=== PATIENT | female | born 1945 | race African-American/Black ===

== ENCOUNTER → 2017-07-24 | Outpatient (CLI) | payer OTHER ==
[~2017-07-24] VITALS: Ht 160 cm; Wt 63.5 kg
[~2017-07-24] MED LIST: AMBIEN 5 MG TABL5 M1 PO; ASPIR 8181 MG PO; CALCITRIOL0.25 MCG PO; CALCIUM ACETAT667 MG PO; CLONAZEPAM 1 MG1 M1 PO; COLACE 100 MG100 MG PO; HEPARIN IV; HYDROCODONE-CHLO5 ML PO; KEPPRA 500 MG500 M1 PO; LEVOXYL25 MCG PO; LIPITOR10 MG PO; MINOCIN100 MG PO; NEPHROCAPS SOFT1 CAP PO; NEURONTIN 300300 M1 PO; OXYCODONE HCL10 MG PO; OXYCODONE HCL5 MG PO; PENTOXIFYLLINE400 MG PO; PHOSLO667 M1 PO; PROSTAT; SENSIPAR 30 MG30 MG PO; SENSIPAR60 MG PO; TRAVATAN Z2.5 ML OPHTHALMIC; TUSSIONEX PENNKI1 ML PO
--- NOTE | ~2017-07-24 | HPC ---
[facility] [address] [place] [address] PAIN MANAGEMENT CONSULTATION Name: IRENE HYDE Room #: REG RADHA Maradiaga#: [id number] Admission: 07/24/17 Attend Phys: Larry Dickson DO Discharge: Date of : 49 Report #: [id number] THIS REPORT FOR: //name// <ELECTRONICALLY SIGNED> By: Larry Dickson DO 08/10/17 0714 1114 1125 Larry Dickson DO /nt
--- NOTE | ~2017-07-24 | HPC ---
[facility] [address] [address] PAIN MANAGEMENT CONSULTATION Name: IRENE HYDE Room #: REG [facility]..#: [id number] Admission: 07/24/17 Attend Phys: Larry Dickson DO Discharge: Date of : 47 Report #: [id number] THIS REPORT FOR: //name// CC: KEYLA Dickson ____ ____ DATE OF SERVICE: 07/24/2017 The patient is a delightful 72-year-old female seen in consultation at the request of [facility] for assistance with management of chronic pain concerns. The patient has peripheral neuropathy, hands greater than feet. She has used gabapentin for some time with nominal efficacy, did well with oxycodone 10 mg 1-2 a day, limit 60 tablets in 30 days. She notes she has an electric quality of pain in her hands, burning in her feet, she notes the symptoms are continuous, shooting, aching, throbbing, sharp, and stabbing, rates pain anywhere from 8-10 on a VAS. REVIEW OF SYSTEMS: A complete review of systems was attached to chart and was gone over with the patient. She is . She has poorly treated hypertension. She ultimately ended up with chronic kidney disease and has been on dialysis since 2004. She has history of hepatitis C from a blood transfusion when she was much younger. History of DJD affecting back and multiple joints. History of high procalcitonin. She has a shunt in the right upper extremity. She is hypothyroid for which she uses levothyroxine. Dyslipidemia for which she takes atorvastatin, zolpidem at bedtime for insomnia, Sensipar for hyperparathyroidism, clonazepam 1 mg at bedtime for insomnia and anxiety. As noted in the chief complaint, oxycodone 10 mg 1 or 2 a day and gabapentin 300 mg once a day. All other review of systems are noncontributory (negative). PHYSICAL EXAMINATION: Reveals a very pleasant 5 feet 3 inches, 140 pounds female, BMI is 24.8 kg/m2. Blood pressure is 141/74, pulse is 76, respirations are 16, room air saturation 100%. Subjective pain score is 9 on a VAS. She uses a walker to ambulate, status post fracture of the right ankle in May 2015. She just had hardware removed in February 2017. She spent mostly 2015 in the hospital with poor wound healing and that open comminuted fracture. Cranial nerves 2-12 are grossly intact. Pupils are equal and react to light and accommodation. Extraocular muscles are intact. She has poor dentition. Shunt in the right arm. Multiple dermatologic lesions on her arms and legs secondary to hypercalcemia. Right ankle, status post surgery with slight diminished range [facility] [address] [place] [address] PAIN MANAGEMENT CONSULTATION Name: IRENE HYDE Room #: REG CLFeli Maradiaga#: [id number] Admission: 07/24/17 Attend Phys: Larry Dickson DO Discharge: Date of : 49 Report #: [id number] of motion. Heart is regular and rhythmical without murmur. Lungs are clear to auscultation. ASSESSMENT: Neuropathic pain, bilateral hands and feet in a patient with chronic kidney disease on dialysis Thursday, and Thursday (hemodialysis). Multiple comorbidities. RECOMMENDATIONS: I think it is reasonable to continue patient on oxycodone 10 mg 1-2 a day, limit 60 tablets for 30 days. We talked about opiate concerns including habituation, tolerance, sedation, constipation. Gabapentin is certainly reasonable for neuropathic pain. As this drug is near 100% renally excreted, we will simply have the patient take two tablets, 600 mg Thursday, , and Thursday after dialysis. We will have the patient follow up in 30 days for reevaluation. Thank you for allowing me to participate in the patient's care, I will keep you abreast of her progress. ADDENDUM REVIEW OF SYSTEMS: She has a history of chronic kidney disease. She has a shunt in her right arm. <ELECTRONICALLY SIGNED> By: Larry Dickson DO 08/10/17 0714 1230 1540 Larry Dickson DO /nt
[2017-07-24 10:14] VITALS: BP 141/74
== END ==
LOC: PAIN 06-12 06:58
DX: M79.643 Pain in unspecified hand (principal); M79.673 Pain in unspecified foot; N18.9 Chronic kidney disease, unspecified; Z87.891 Personal history of nicotine dependence

== ENCOUNTER → 2017-08-24 | Outpatient (CLI) | payer OTHER ==
[~2017-08-24] VITALS: Ht 160 cm; Wt 70.3 kg
--- NOTE | ~2017-08-24 | HPC ---
[facility] [place] [place] [address] [place] [address] PAIN MANAGEMENT CONSULTATION Name: IRENE HYDE Room #: REG [facility] MMarissa.#: [id number] Admission: 08/24/17 Attend Phys: Lrary Dickson DO Discharge: Date of : 47 Report #: [id number] THIS REPORT FOR: //name// CC: OSMANY Dickson PAIN CLINIC NOTE The patient is a very pleasant 72-year-old female, initially seen on 07/24/2017 for management of neuropathic pain in bilateral feet and hands, requiring complex medication management. Comorbidity includes chronic kidney disease, requiring dialysis Thursday, and Saturdays. I saw her on the . We elected to continue oxycodone 10 mg 1 or 2 a day as needed for pain and changed gabapentin from a daily tablet to simply to two 300 mg tablets (600 mg for these once after dialysis) 3 times a week. The patient returns to pain clinic today noting symptoms seemed to be improving, still, however, has a burning, sharp electric pain in her hands and feet, though feels that she is doing a little bit better. Physical exam is otherwise unchanged, a pleasant 72-year-old female. Vital signs stable as noted in the EMR. She rates her pain at about a 6 on a VAS. Rises from chair using a walker, gait is antalgic, but tandem. She is alert and oriented. Fingers are cool, but she does have good pulses. We reviewed the fact that opiate medications are being used to provide analgesia adequate to support activities of daily living, not attempting to achieve a specific pain score on the 0-10 Visual Analog Scale. The current opiate medications are providing sufficient analgesia to allow the patient to participate in activities of daily living. The patient is not exhibiting any aberrant behavior suggestive of drug diversion. The patient is not having any adverse reactions to medications. The patient is not suffering from daytime somnolence or mental acuity changes. The patient is managing opiate-induced constipation with appropriate czcz-yim-knhakuw agents and dietary considerations. The patient was counseled on concern for caution with operating a motor vehicle while using opiate medications. A physical exam was performed and the patient's functional status was evaluated. All patients with back pain were advised against the bed rest greater than 4 days and were advised to return to normal activities. Pain score assessment was noted and the treatment plan was reviewed with the patient. All current medications, both prescribed and OTC were reviewed and reconciled on the electronic medical record. Tobacco screening was accomplished and smoking cessation was advised when indicated. BMI was noted and diet/exercise modification was recommended for all patients following outside normal parameters. I reviewed with the patient today their responsibilities to safeguard prescription medications, reviewed their responsibility to utilize medications [address] [address] PAIN MANAGEMENT CONSULTATION Name: IRENE HYDE Room #: REG RADHA Maradiaga#: [id number] Admission: 08/24/17 Attend Phys: Larry Dickson DO Discharge: Date of : 47 Report #: [id number] only as prescribed by the physician. They are to seek and receive pain medications only from 1 physician group ([facility]). They are to use 1 pharmacy and keep the clinic informed if they change pharmacies. Their responsibilities include making followup visits in a timely fashion and to avoid abrupt discontinuation of medication usage. Their responsibilities further include bringing their medications (bottles from the pharmacy with residual pills) to the visit for possible confirmation of pill counts and the patient understands it is their responsibility to submit to random drug screens to ensure both that the medications prescribed are present, and that no other controlled substances are present. All prescriptions provided today were generated electronically. ASSESSMENT: 1. Neuropathic pain in bilateral feet and hands, chronic kidney disease requiring dialysis Tuesdays, and Saturdays. 2. Complex medication management. RECOMMENDATIONS: 1. Continue oxycodone 10 mg 1-2 tablets a day (one tablet up to b.i.d. as needed for pain), dispense 60 tablets. 2. Increase gabapentin to 3 tablets after dialysis (900 mg) 3 times a week. Follow up in 4 weeks for evaluation. If doing well, we will write for multi-month prescription at that time. <ELECTRONICALLY SIGNED> By: Larry Dickson DO 08/26/17 0753 1250 2103 Larry Dickson DO /nt
[2017-08-24 12:36] VITALS: BP 126/83
== END ==
LOC: PAIN 08-21 07:48
DX: M79.2 Neuralgia and neuritis, unspecified (principal); N18.9 Chronic kidney disease, unspecified; Z99.2 Dependence on renal dialysis; Z79.899 Other long term (current) drug therapy

== ENCOUNTER → 2017-11-19 | Outpatient (CLI) | payer OTHER ==
[~2017-11-19] VITALS: Ht 160 cm; Wt 67.3 kg
--- NOTE | ~2017-11-19 | HPC ---
[facility] [place] [address] PAIN MANAGEMENT CONSULTATION Name: IRENE HYDE Room #: REG [facility] Chiquita.#: [id number] Admission: 11/19/17 Attend Phys: Larry Dickson, DO Discharge: Date of : 47 Report #: [id number] THIS REPORT FOR: //name// CC: Slava Dickson The patient is a 72-year-old female, typically treated for neuropathic pain affecting bilateral hands and feet, complex medication management, chronic comorbidities including renal failure requiring dialysis Tuesdays, and Saturdays. She was last seen in pain clinic on 08/24/2017. She returns to pain clinic today. She is quite frustrated. Apparently, she had dropped her oxycodone tablets on the floor. The patient reports that the nursing staff swept up and threw them away. She has been out of oxycodone for 10 days. She rates her pain a 10 on a VAS. She complains of constant, shooting, sharp, aching, throbbing, pins and needles pain in her hands and feet. She is frustrated and anxious today. Maybe, she may have a little bit of opiate withdrawal, anxiety. Prior, the patient notes her oxycodone 10 mg b.i.d. (30 mEq of morphine a day) plus gabapentin after dialysis has been helpful to mitigate her pain. She has always rated her pain high, 8-9 typically, but states the pain is quite problematic at this time. She notes some axial back pain with dialysis. PHYSICAL EXAMINATION: Relatively unchanged, 72-year-old female, BMI is 26.3 kilograms per meter squared. She is alert and oriented, little anxious, quite hypertensive today. Blood pressure 175/125, pulse is 95, respirations are 18, room air oxygen saturation is 100%. Reviewing the chart, it appears that typically her blood pressure has been well within normal limits. Subjective peripheral neuropathy in her hands and feet. No cutaneous changes are noted. We reviewed the fact that opiate medications are being used to provide analgesia adequate to support activities of daily living, not attempting to achieve a specific pain score on the 0-10 Visual Analog Scale. The current opiate medications are providing sufficient analgesia to allow the patient to participate in activities of daily living. The patient is not exhibiting any aberrant behavior suggestive of drug diversion. The patient is not having any adverse reactions to medications. The patient is not suffering from daytime somnolence or mental acuity changes. The patient is managing opiate-induced constipation with appropriate imtf-nio-dbwpfnn agents and dietary considerations. The patient was counseled on concern for caution with operating a motor vehicle while using opiate medications. A physical exam was performed and the patient's functional status was evaluated. All patients with back pain were advised against the bed rest greater than 4 days and were advised to return to normal activities. Pain score assessment was noted and the treatment plan was reviewed with the patient. All current medications, both prescribed and OTC were reviewed and reconciled on the [address] [address] PAIN MANAGEMENT CONSULTATION Name: MARY ELLENIRENE ZENON Room #: REG RADHA Maradiaga#: [id number] Admission: 11/19/17 Attend Phys: Larry Dickson DO Discharge: Date of : 49 Report #: [id number] electronic medical record. Tobacco screening was accomplished and smoking cessation was advised when indicated. BMI was noted and diet/exercise modification was recommended for all patients following outside normal parameters. I reviewed with the patient today their responsibilities to safeguard prescription medications, reviewed their responsibility to utilize medications only as prescribed by the physician. They are to seek and receive pain medications only from 1 physician group ( [facility]). They are to use 1 pharmacy and keep the clinic informed if they change pharmacies. Their responsibilities include making followup visits in a timely fashion and to avoid abrupt discontinuation of medication usage. Their responsibilities further include bringing their medications (bottles from the pharmacy with residual pills) to the visit for possible confirmation of pill counts and the patient understands it is their responsibility to submit to random drug screens to ensure both that the medications prescribed are present, and that no other controlled substances are present. All prescriptions provided today were generated electronically. ASSESSMENT: Neuropathic pain, bilateral hands and feet; chronic kidney disease, requiring dialysis 3 days a week; complex medication management for neuropathic and axial back pain. RECOMMENDATIONS: I had a long discussion with the patient today about therapeutic options. We have elected to resume oxycodone IR 10 mg b.i.d., I have taken the liberty of writing for 2 months of current medication. Resume gabapentin 300 mg 3 tablets after dialysis on Tuesdays, and Saturdays. Otherwise, no medication changes. Medication list was reconciled today. The patient has not fallen in the last 3 months. She does use a walker. No problems with daytime somnolence, mental acuity changes or constipation. <ELECTRONICALLY SIGNED> By: Larry Dickson DO 11/19/17 1445 1133 1429 Larry Dickson DO /nt
[2017-11-19 11:07] VITALS: BP 175/126
== END ==
LOC: PAIN 07:04
DX: M79.2 Neuralgia and neuritis, unspecified (principal); N18.9 Chronic kidney disease, unspecified; M79.642 Pain in left hand; M79.641 Pain in right hand; M79.672 Pain in left foot; M79.671 Pain in right foot; Z99.2 Dependence on renal dialysis; Z79.899 Other long term (current) drug therapy

== ENCOUNTER → 2018-03-24 | Outpatient (CLI) | payer OTHER ==
[~2018-03-24] VITALS: Ht 160 cm; Wt 67.4 kg
--- NOTE | ~2018-03-24 | HPC ---
[facility] [place] [address] PAIN MANAGEMENT CONSULTATION Name: MARY ELLENIRENEGINA YARBROUGH Room #: REG [facility]..#: [id number] Admission: 03/24/18 Attend Phys: Zana Hyde MD Discharge: Date of : 47 Report #: [id number] THIS REPORT FOR: //name// CC: Slava Hyde DATE OF SERVICE: 03/24/2018 CHIEF COMPLAINT: Bilateral hand pain and leg pain. HISTORY: The patient is a 72-year-old black female who has been followed in the pain clinic. She has chronic pain involving her hands. Also, has pain involving her feet. This is neuropathic in nature. She has used Icy Hot on her hands and finds that this is somewhat helpful. Finds that the use of gabapentin is beneficial. She takes this medication after dialysis on Tuesdays, and Saturdays. She also has pain improved with the use of OxyIR 10 mg b.i.d. She feels that this medication is helpful as well. She states that she is able to do activities of daily living such as keeping her house clean and to remain independent. She feels that these medications are beneficial. Rates her pain as a 10/10 today. She did run out of medications a couple of days ago. Overall, she feels that the medication is helpful. Denies that she has any problems with mentation. Denies she is having any problems with the gabapentin or the OxyIR. She has returned today for renewal of her medications. She states that she continues to think clearly when she is on these medications. She is having no problems with constipation or other problems. ALLERGIES: 1. NONSTEROIDAL ANTI-INFLAMMATORY medications since the patient is on dialysis. 2. PSEUDOEPHEDRINE. CURRENT MEDICATIONS: 1. OxyIR 10 mg b.i.d., gabapentin 900 mg 3 tablets after dialysis Tuesdays, and Saturdays. 2. Heparin during dialysis. The heparin was used during dialysis, levothyroxine 0.025 mg, calcium 667 mg, Lipitor 10 mg, Ambien 5 mg at bedtime p.r.n., insomnia, Sensipar 30 mg, B complex, folic acid, Nephrocaps 1 mg, Travatan Z 2.5 mL, 2 drops ophthalmically daily, clonazepam 1 mg, aspirin 81 mg. PAIN CLINIC ASSESSMENT/PQRS: 1. History of osteoarthritis. The patient states that she has some arthritic changes in her hands. She is not being treated for rheumatoid arthritis or osteoarthritis. 2. Height 5 feet 3 inches, weight 148 pounds, BMI 26.3. 3. Vital signs: Blood pressure 186/92, pulse 83, respiratory rate 16, room air saturation is 100%. 4. Pain intensity 10/10. [facility] [address] [place] [address] PAIN MANAGEMENT CONSULTATION Name: MARY ELLENIRENE ZENON Room #: REG CLI [facility].#: [id number] Admission: 03/24/18 Attend Phys: Zana Hyde MD Discharge: Date of : 49 Report #: [id number] 5. Fall risk. The patient has not fallen in the last 3 months. 6. Blood thinner. The patient is not on a blood thinning medication. 7. Hypertension. The patient is being treated for hypertension. 8. Opioid medications. The patient gets her medications from one source, the pain clinic. 9. Risk assessment tool, low for opioid use. 10. Functional assessment . 11. Recreational drug use. The patient denies use of recreational drugs. 12. Alcohol: The patient denies use of alcoholic beverages. 13. Tobacco: The patient denies smoking. PHYSICAL EXAMINATION: GENERAL: The patient is a well-developed, well-nourished black female. She appears her stated age. She is alert and oriented x 3. Her affect is appropriate. Speech is fluent, sensorium is clear. HEENT: Normocephalic, atraumatic. Extraocular eye muscles intact. Sclerae nonicteric. Mucous membranes are moist. NECK: Without adenopathy or JVD. HEART: Regular rate. ABDOMEN: Nontender. Bowel sounds present. LUNGS: Clear to auscultation. EXTREMITIES: Muscle straight judged to be 4/5 for the major muscle groups in the upper extremities. Lower extremity muscle strength 5-/5 for the major muscle groups in the lower extremity. The patient has pain and discomfort involving her hands. Has pain and discomfort in her feet. IMPRESSION: 1. Neuropathic pain. 2. Bilateral hand and foot pain. 3. Renal disease requiring dialysis. 4. Complex medical regimen with axial back pain as well. 5. Hepatitis C. 6. Renal failure. 7. Hypertension. RECOMMENDATIONS: We discussed treatment options with the patient. The patient states that she is not having any problems with her gabapentin medication, when she takes this medication, she notes an improvement in her pain. This enables her to stay active. States that she mops her floor, cleans her house, keeps her house in a very good an organized fashion. Has a helper who comes by to do the drudgery or cleaning that she dislikes which is laundry as well as ironing. Overall, she is able to abstain and maintain her independence. She would like to continue with her medications. RECOMMENDATION: A script for her OxyIR 10 mg 1 p.o. b.i.d. has been written. The patient will also continue with gabapentin 900 mg 3 tablets 3 times weekly [facility] [address] [place] [address] PAIN MANAGEMENT CONSULTATION Name: IRENE HYDE Room #: REG CLI .R.#: [id number] Admission: 03/24/18 Attend Phys: Zana Hyde MD Discharge: Date of : 49 Report #: [id number] after dialysis. We would like to thank you for letting us participate in her care. We hope she continues to improve. By: [id number] Zana Hyde MD /nt
[2018-03-24 13:05] VITALS: BP 186/92
== END ==
LOC: PAIN 07:18
DX: M79.2 Neuralgia and neuritis, unspecified (principal); M79.642 Pain in left hand; M79.641 Pain in right hand; M79.604 Pain in right leg; M79.605 Pain in left leg; I10 Essential (primary) hypertension; N28.9 Disorder of kidney and ureter, unspecified; K73.8 Other chronic hepatitis, not elsewhere classified

== ENCOUNTER → 2018-05-24 | Outpatient (CLI) | payer OTHER ==
[~2018-05-24] VITALS: Ht 160 cm; Wt 69.1 kg
[2018-05-24 12:38] VITALS: BP 151/85
--- NOTE | 2018-05-24 12:42 | NUR ---
Pain Clinic Assessment: 1. History of Osteoarthritis: History of Rheumatoid Arthritis: 2. Height: 5 ft. 3 in. 160.0 cm. Weight: 152.4 lb. oz. 69.128 kg. Patient's BMI: 27.0 3. Vital Signs: BP: 151/85 Pulse: 85 Resp: 16 Temp: 02 Sat: 100 ECG Mon: 4. Pain Intensity: 10 5. Fall Risk: Dizziness: N Needs help standing or walking: N Fallen in the last 3 months: N Fall risk comments: 6. Patient on Blood Thinner: None 7. History of Hypertension: Y 8. Opioid Therapy greater than 6 weeks: Y Opiate Contract Signed: 9. Risk Assessment Tool Provided: LOW 10. Functional Assessment Tool: 11. Recreational Drug Use: Never Drug Type: Tobacco Use: Former Smoker Tobacco Type: Amount or Packs/day: How Many Years: Alcohol Use: No Frequency: Quant:
--- NOTE | 2018-05-25 08:11 | HPC ---
[facility] [address] [place] [address] PAIN MANAGEMENT CONSULTATION Name: IRENE LOGAN Room #: REG [facility] MMarissa.#: [id number] Admission: 05/24/18 Attend Phys: Heaven Guerrero Discharge: Date of : 49 Report #: [id number] THIS REPORT FOR: //name// CC: Heaven Guerrero [facility] DATE OF SERVICE: 05/24/2018 CHIEF COMPLAINT: Bilateral hand pain and leg pain. HISTORY OF PRESENT ILLNESS: This is a 72-year-old black female followed in the pain clinic for some time now for her chronic pain involving her hands. She also has pain involving bilateral feet. This is neuropathic in nature. She does take dialysis on Thursday, and Saturdays and takes gabapentin after her dialysis days. She finds this is very beneficial. She would like a refill of her OxyIR 10 mg and her gabapentin today. 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 She tells me that it is shooting, aching, throbbing pain, worse of course in her feet and she does have hand pain. Normally, her pain score is significantly less. She also tells me that she has a blood clot in her right arm, states since has been having problems with her dialysis because of this. She is hoping to get that squared away this week, going to see her primary doctor tomorrow because she is leaving to go to [place] on to see her brother for a while. The patient would like a refill of her medications today before she goes out of town. She does not have any constipation issues or daytime somnolence that she is aware of. ALLERGIES: NONSTEROIDAL ANTI-INFLAMMATORIES, PSEUDOEPHEDRINE, IBUPROFEN, AND LYRICA. CURRENT MEDICATIONS: OxyIR 10 mg twice a day; gabapentin 300 mg 3 tablets after dialysis Thursday, and Thursday; thyroid medicine 0.25 daily; calcium acetate daily; atorvastatin 10 mg at bedtime; Ambien 5 mg at bedtime p.r.n.; Sensipar 60 mg daily; B complex; folic acid; Nephrocaps daily; Travatan 2.5 ophthalmic drops daily; clonazepam 1 mg at bedtime; and 81 mg aspirin daily. PQRS: 1. She has a history of osteoarthritis. She states she has arthritic changes in her hands, not being treated for rheumatoid arthritis. 2. Height is 5 feet 3 inches, weight today is 152, BMI is 27. 3. Vital signs: 151/85, pulse is 85, respirations 16, oxygen sat 100%. 4. Pain score is 10. 5. Denies dizziness. Does not need help walking or standing. Has not fallen in the last 3 months. 6. The patient does not take blood thinners. [address] [address] PAIN MANAGEMENT CONSULTATION Name: MARY ELLENIRENE YARBROUGH Room #: REG RADHA Maradiaga#: [id number] Admission: 05/24/18 Attend Phys: Heaven Guerrero Discharge: Date of : 47 Report #: [id number] 7. Has a history of hypertension. 8. Opioid therapy is greater than 6 weeks. Therefore, an opioid signed contract is on the chart. Risk assessment tool is low. Her functional assessment is 21/70. 9. The patient denies recreational drug use. She is a former smoker, does not drink alcohol. We did check prescription monitoring system. The patient does fill appropriately for her medications by Dr. Logan. The patient tells me that she does safeguard her medications. We will check a drug screen on the next visit. There is not one on the chart until past year. PHYSICAL EXAMINATION: GENERAL: This is a well-developed, well-nourished black female. She appears her stated age. She is alert and orientated. Her affect is appropriate. Her speech is fluent. HEENT: Normocephalic, atraumatic. Extraocular eye muscles are intact. Sclerae nonicteric. Mucous membranes are moist. NECK: Without adenopathy or JVD. EXTREMITIES: Muscle strength judged to be 4/5 in all major muscle groups in the upper extremities. The lower extremity strength judged to be 5/5 in major muscle groups in her lower extremities. She has pain and discomfort in her bilateral hands and some in her right lower arm. IMPRESSION: 1. Neuropathic pain. 2. Bilateral hand and foot pain. 3. Renal disease requiring dialysis. 4. Complex medical regimen with axial back pain. 5. Hepatitis C. 6. Renal failure. 7. Hypertension. We reviewed the fact that opiate medications are being used to provide analgesia adequate to support activities of daily living, not attempting to achieve a specific pain score on the 0-10 Visual Analog Scale. The current opiate medications are providing sufficient analgesia to allow the patient to participate in activities of daily living. The patient is not exhibiting any aberrant behavior suggestive of drug diversion. The patient is not having any adverse reactions to medications. The patient is not suffering from daytime somnolence or mental acuity changes. The patient is managing opiate-induced constipation with appropriate xlwu-hzo-onatcsw agents and dietary considerations. The patient was counseled on concern for caution with operating a motor vehicle while using opiate medications. A physical exam was performed and the patient's functional status was evaluated. All patients with back pain were advised against the bed rest greater than 4 days and were advised to return to normal activities. Pain score assessment was [facility] [address] [place] [address] PAIN MANAGEMENT CONSULTATION Name: IRENE LOGAN Room #: REG [facility] M.R.#: [id number] Admission: 05/24/18 Attend Phys: Heaven Guerrero Discharge: Date of : 49 Report #: [id number] noted and the treatment plan was reviewed with the patient. All current medications, both prescribed and OTC were reviewed and reconciled on the electronic medical record. Tobacco screening was accomplished and smoking cessation was advised when indicated. BMI was noted and diet/exercise modification was recommended for all patients following outside normal parameters. I reviewed with the patient today their responsibilities to safeguard prescription medications, reviewed their responsibility to utilize medications only as prescribed by the physician. They are to seek and receive pain medications only from 1 physician group ( [facility]). They are to use 1 pharmacy and keep the clinic informed if they change pharmacies. Their responsibilities include making followup visits in a timely fashion and to avoid abrupt discontinuation of medication usage. Their responsibilities further include bringing their medications (bottles from the pharmacy with residual pills) to the visit for possible confirmation of pill counts and the patient understands it is their responsibility to submit to random drug screens to ensure both that the medications prescribed are present, and that no other controlled substances are present. All prescriptions provided today were generated electronically. PLAN: 1. We discussed treatment options with the patient today. The patient tells me that she does need her pain medicine refilled today. She has been out 3 days and that her pain has been significantly increased. 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 Scripts given today for her OxyIR 10 mg twice a day, #60 to release today and 4 weeks. 2. The patient tells me that she does not need her gabapentin refilled today. Her caregiver had called her primary doctor for refill of that. She instructed her not to do this again that she gets that medicine from Dr. Logan, so she has not needing a gabapentin script today. 3. The patient is going to see her brother in [place]. I instructed her to safeguard her medicines and keep them with her at all times when she is traveling. The patient verbalized understanding. 4. We will collect a urine or oral swab next visit for a drug screen on this patient. Today, care was given under the direction of Dr. Logan. <ELECTRONICALLY SIGNED> By: Heaven Guerrero 05/25/18 0811 1335 56 Heaven Guerrero /anupam
== END ==
LOC: PAIN 05-19 08:20
DX: M79.605 Pain in left leg (principal); M79.604 Pain in right leg; M79.2 Neuralgia and neuritis, unspecified; M79.641 Pain in right hand; M79.642 Pain in left hand; N28.9 Disorder of kidney and ureter, unspecified; B19.20 Unspecified viral hepatitis C without hepatic coma; I10 Essential (primary) hypertension; M54.5 Low back pain

== ENCOUNTER → 2018-07-28 | Outpatient (CLI) | payer OTHER ==
[~2018-07-28] VITALS: Ht 160 cm; Wt 64.0 kg
--- NOTE | ~2018-07-28 | HPC ---
[facility] [address] [place] [address] PAIN MANAGEMENT CONSULTATION Name: IRENE LOGAN Room #: REG [facility]..#: [id number] Admission: 07/28/18 ������������������ Attend Phys: Zana Logan MD Discharge: ������������������ Date of : 47 Report #: [id number] THIS REPORT FOR: //name// CC: OSMANY Luna DATE OF SERVICE: 07/28/2018 CHIEF COMPLAINT: Pain in the neck, arms, and hands after surgery. FOLLOWUP HISTORY: The patient is a 73-year-old female who has been seen in the pain clinic in the past because of chronic pain. Has had pain in her hands as well as in her legs. She has been found to have neuropathic pain. States that she was mopping her floors on her hands and knees. She developed some problems in her upper extremity. States that she was very weak. After getting assistance, she was taken to the hospital. It was found that she had had some narrowing up in her neck. She underwent surgery in the neck area. States that she has had some improvement in her functioning. She is in a nursing facility at this juncture. States that she did develop some infection in her neck and is being treated for that. Overall, she continues to require dialysis. She has some concerns regarding her medications at the new facility. States that the color of the medications were different. This caused her some consternation and she declined taking some of her medications. She has not been taking the gabapentin medication. She felt that medication had been beneficial in the past. ALLERGIES: NONSTEROIDAL ANTI-INFLAMMATORY, THE PATIENT IS ON DIALYSIS AND PSEUDOEPHEDRINE. CURRENT MEDICATIONS: OxyIR 10 mg b.i.d.; gabapentin 300 mg, takes 900 mg as directed 3 tablets after dialysis Thursday, and Thursday; heparin 2000 units during dialysis; Levothyroxine 0.025 mg; Ambien 5 mg for insomnia; Sensipar 30 mg daily, Nephrocaps softgel, Travatan Z 2.5 mL ophthalmic, clonazepam 1 mg, aspirin 81 mg chewable. PAIN CLINIC ASSESSMENT/PQRS: 1. History of osteoarthritis. The patient has some arthritic problems in her neck. Status post posterior surgical treatment. The patient is not being treated for rheumatoid arthritis. 2. Height 5 feet 3 inches, weight 141 pounds, BMI 25. 3. Vital signs: Blood pressure 101/61, pulse 94, respiratory rate 16, room air saturation 100%. 4. Pain intensity 10/10. 5. Fall history: The patient has not fallen in the last 3 months. 6. Blood thinner. The patient is not on a blood thinning medication. [facility] [address] [place] [address] PAIN MANAGEMENT CONSULTATION Name: IRENE LOGAN Room #: REG CL Chiquita.#: [id number] Admission: 07/28/18 ������������������ Attend Phys: Zana Logan MD Discharge: ������������������ Date of : 49 Report #: [id number] 7. Hypertension. The patient is being treated for hypertension. 8. Opiates greater than 6 weeks. The patient receives her medication from [facility]. 9. Risk assessment tool: Low for opioid use. 10. Functional assessment tool . 11. Recreational drug use. The patient denies use of recreational drugs. 12. Tobacco: The patient is a former smoker. 13. Alcohol: The patient denies use of alcoholic beverages at this juncture. PHYSICAL EXAMINATION: GENERAL: The patient is a well-developed well-nourished, black female, appears her stated age. She is in a wheelchair. Complains of some pain and discomfort in her hands as well as in her lower extremities. Speech is fluent. The patient has some decreased range of motion in her neck secondary to the surgery. There is a well healing scar from the occipital area to approximately T1 interspace area. HEART: Regular rate. ABDOMEN: Nontender. Bowel sounds present. LUNGS: Clear to auscultation. EXTREMITIES: Upper extremity, judged to be 4/5 for the major muscle groups. Lower extremity, 4/5 for lower extremity. The patient has some neuropathic pain involving her hands and feet. IMPRESSION: 1. Neuropathic pain. 2. Bilateral hand and foot pain. 3. Renal disease requiring dialysis 3 times weekly. 4. Complex medical regimen with axial back pain. 5. Hepatitis C history. 6. Renal failure. 7. Hypertension. RECOMMENDATIONS: We discussed treatment options with the patient. At this juncture, we will continue with her medications of gabapentin. The patient will take 900 mg of this medication after dialysis. She will call us if she has any concerns. An instruction for use of gabapentin have been provided. We would like to thank you for letting us participate in her care. ��������������������������������������������� ���������������������������������������� By: ��������������������������������������������� 1112 40 Zana Logan MD /[facility]
[2018-07-28 10:10] VITALS: BP 101/61
--- NOTE | 2018-07-28 10:32 | NUR ---
Pain Clinic Assessment: 1. History of Osteoarthritis: History of Rheumatoid Arthritis: 2. Height: 5 ft. 3 in. 160.0 cm. Weight: 141.0 lb. oz. 63.957 kg. Patient's BMI: 25.0 3. Vital Signs: BP: 101/61 Pulse: 94 Resp: 16 Temp: 02 Sat: 100 ECG Mon: 4. Pain Intensity: 10 5. Fall Risk: Dizziness: Y Needs help standing or walking: Y Fallen in the last 3 months: Y Fall risk comments: 6. Patient on Blood Thinner: None 7. History of Hypertension: Y 8. Opioid Therapy greater than 6 weeks: Y Opiate Contract Signed: 9. Risk Assessment Tool Provided: LOW 10. Functional Assessment Tool: 11. Recreational Drug Use: Never Drug Type: Tobacco Use: Former Smoker Tobacco Type: Amount or Packs/day: How Many Years: Alcohol Use: No Frequency: Quant:
== END ==
LOC: PAIN 07:06
DX: M79.641 Pain in right hand (principal); M79.642 Pain in left hand; M79.671 Pain in right foot; M79.672 Pain in left foot; M54.5 Low back pain; G62.9 Polyneuropathy, unspecified; N17.9 Acute kidney failure, unspecified; I12.0 Hypertensive chronic kidney disease with stage 5 chronic kidney disease or end stage renal disease; N18.6 End stage renal disease; Z99.2 Dependence on renal dialysis; Z79.899 Other long term (current) drug therapy; Z86.19 Personal history of other infectious and parasitic diseases

== ENCOUNTER → 2018-09-10 | Outpatient (CLI) | payer OTHER ==
[~2018-09-10] VITALS: Ht 160 cm; Wt 64.4 kg
[~2018-09-10] MED LIST changes: +PLAVIX 75 MG TA75 M1 PO; +PROTONIX40 M1 PO
[2018-09-10 11:35] VITALS: BP 136/98
--- NOTE | 2018-09-10 11:41 | NUR ---
Pain Clinic Assessment: 1. History of Osteoarthritis: History of Rheumatoid Arthritis: 2. Height: 5 ft. 3 in. 160.0 cm. Weight: 142.0 lb. oz. 64.411 kg. Patient's BMI: 25.2 3. Vital Signs: BP: 136/98 Pulse: 91 Resp: 18 Temp: 02 Sat: 100 ECG Mon: 4. Pain Intensity: 10 5. Fall Risk: Dizziness: N Needs help standing or walking: Y Fallen in the last 3 months: N Fall risk comments: 6. Patient on Blood Thinner: None 7. History of Hypertension: Y 8. Opioid Therapy greater than 6 weeks: Y Opiate Contract Signed: 9. Risk Assessment Tool Provided: LOW 10. Functional Assessment Tool: 11. Recreational Drug Use: Never Drug Type: Tobacco Use: Former Smoker Tobacco Type: Amount or Packs/day: How Many Years: Alcohol Use: No Frequency: Quant:
--- NOTE | 2018-09-13 08:27 | HPC ---
[facility] [place] [address] PAIN MANAGEMENT CONSULTATION Name: IRENE LOGAN Room #: REG [facility]..#: [id number] Admission: 09/10/18 ������������������ Attend Phys: Heaven Guerrero Discharge: ������������������ Date of : 47 Report #: [id number] THIS REPORT FOR: //name// CC: Heaven Guerrero Slava Lorie DATE OF SERVICE: 09/10/2018 CHIEF COMPLAINT: Bilateral hand and feet pain. HISTORY OF PRESENT ILLNESS: This is a very pleasant 73-year-old female returning to the pain clinic for her chronic ongoing pain in her hands and her feet. She tells me that recently she had stents placed in her groins and was at Rehab for a while. They were giving her oxycodone 5 mg tablets. She tells me that she then refused to take them since they were not the medication that Dr. Logan prescribed. After she was discharged from Rehab, she experienced significant pain and went to [facility] ER. They did give her some OxyIR 5 mg tablets, 10 of them, which the patient had taken and shows us today that she has three pain pills left. She was out of all current medication since she had had transportation issues and not able to get here. So today, she is complaining of pain of 10/10 since she has not been on her regular pain regimen. She tells me that her hands and feet are her worst pain with her neuropathy. She also complains of achy legs that are throbbing and sharp, feels like pins and needles. She would like a refill of her medications today. She does not have any constipation issues or overmedication feeling from her meds. ALLERGIES: NONSTEROIDAL ANTI-INFLAMMATORIES, PSEUDOEPHEDRINE, IBUPROFEN AND LYRICA. CURRENT MEDICATIONS: Plavix 75 mg daily, Protonix 40 mg daily, OxyIR 10 mg b.i.d. p.r.n., gabapentin 900 mg after dialysis, Levoxyl 25 mcg daily, calcium 667 mg daily, Lipitor 10 mg at bedtime, Ambien 5 mg at bedtime, Sensipar 60 mg daily, Nephrocaps daily and clonazepam 1 mg at bedtime. PQRS: 1. The patient has history of osteoarthritis in her hands and her back. Denies any rheumatoid arthritis. 2. Height is 5 feet 3 inches, weight is 142 and BMI is 25. 3. Vital signs: Blood pressure 136/98, pulse is 91, respirations 18 and oxygen sat is 100. 4. Pain score is 10/10. 5. Fall risk. Denies dizziness, does not need help standing, has not fallen in the last 3 months and does need help walking. 6. The patient is on blood thinners, on Plavix. She does take medicines for hypertension. 7. Opioid therapy is greater than 6 weeks. Therefore, [place] [id number] PAIN MANAGEMENT CONSULTATION Name: IRENE LOGAN Room #: REG RADHA Maradiaga#: [id number] Admission: 09/10/18 ������������������ Attend Phys: Heaven Guerrero Discharge: ������������������ Date of : 47 Report #: [id number] is low. Functional assessment is 21/70. 8. Recreational drug use, she denies. She is a former smoker and does not drink alcohol. 9. We checked the prescription monitoring system. The patient is due for her medications today. We will check a buccal drug screen on her next visit. PHYSICAL EXAMINATION: GENERAL: This is a pleasant 73-year-old female who is well developed and well nourished. She appears her stated age. She is in a wheelchair today. Her speech is fluent. NECK: She has some decreased range of motion in her neck secondary to her surgery. There is a well-healing scar from her occipital area at T1. EXTREMITIES: Upper extremity strength judged to be 4/5 in major muscle groups; 4/5 in her lower extremities. She does have neuropathic pain involving her hands and feet. Complains of significant burning in her feet today. IMPRESSION: 1. Neuropathic pain. 2. Bilateral hand and foot pain. 3. Renal disease, requiring dialysis. 4. Complex medical management with terms are written opioid agreement. 5. Hepatitis C history. 6. Hypertension. We reviewed the fact that opiate medications are being used to provide analgesia adequate to support activities of daily living, not attempting to achieve a specific pain score on the 0-10 Visual Analog Scale. The current opiate medications are providing sufficient analgesia to allow the patient to participate in activities of daily living. The patient is not exhibiting any aberrant behavior suggestive of drug diversion. The patient is not having any adverse reactions to medications. The patient is not suffering from daytime somnolence or mental acuity changes. The patient is managing opiate-induced constipation with appropriate iveh-ntr-benygkr agents and dietary considerations. The patient was counseled on concern for caution with operating a motor vehicle while using opiate medications. A physical exam was performed and the patient's functional status was evaluated. All patients with back pain were advised against the bed rest greater than 4 days and were advised to return to normal activities. Pain score assessment was noted and the treatment plan was reviewed with the patient. All current medications, both prescribed and OTC were reviewed and reconciled on the electronic medical record. Tobacco screening was accomplished and smoking cessation was advised when indicated. BMI was noted and diet/exercise modification was recommended for all patients following outside normal parameters. [facility] [address] [place] [address] PAIN MANAGEMENT CONSULTATION Name: IRENE LOGAN Room #: REG [facility]..#: [id number] Admission: 09/10/18 ������������������ Attend Phys: Heaven LARRY Yolanda Discharge: ������������������ Date of : 47 Report #: [id number] I reviewed with the patient today their responsibilities to safeguard prescription medications, reviewed their responsibility to utilize medications only as prescribed by the physician. They are to seek and receive pain medications only from 1 physician group ( [facility]). They are to use 1 pharmacy and keep the clinic informed if they change pharmacies. Their responsibilities include making followup visits in a timely fashion and to avoid abrupt discontinuation of medication usage. Their responsibilities further include bringing their medications (bottles from the pharmacy with residual pills) to the visit for possible confirmation of pill counts and the patient understands it is their responsibility to submit to random drug screens to ensure both that the medications prescribed are present, and that no other controlled substances are present. All prescriptions provided today were generated electronically. PLAN: 1. We discussed treatment options with the patient today. The patient tells me that she was in Rehab following previous stent placement. She was not receiving her normal pain medicine. Her pain was increasing, then she refused to take it because it was not the same medicine that Dr. Logan prescribed for her. The patient tells me she was discharged from Rehab, was in significant pain and required an ER visit to get her pain under control. She did take their oxycodone until she could get here to an appointment today. She has had some transportation issues, so therefore, she was out of her medications from Dr. Logan. 2. Prescription was given today for OxyIR 10 mg 1 tablet twice a day, #60 for release today and 4 months. I reminded the patient that this is significantly stronger than the 5 mg that they were giving her in the Rehab. 3. Gabapentin 300 mg tablets 3 tablets post-dialysis. The patient is instructed to take them as soon as she finishes dialysis and will need to take them on those days. The patient verbalizes understanding. She tells me that she has been having increased neuropathy in her feet lately. 4. The patient was seen with Dr. Logan, who collaborated care. The patient will return in 2-month time period for an appointment. ��������������������������������������������� <ELECTRONICALLY SIGNED> ���������������������������������������� By: Heaven Guerrero ��������������������������������������������� 09/13/18 0827 1204 [id number] Heaven Guerrero /anupam
== END ==
LOC: PAIN 08-25 07:07
DX: G89.29 Other chronic pain (principal); M19.041 Primary osteoarthritis, right hand; M19.042 Primary osteoarthritis, left hand; I10 Essential (primary) hypertension; Z88.8 Allergy status to other drugs, medicaments and biological substances; Z79.899 Other long term (current) drug therapy; Z79.01 Long term (current) use of anticoagulants; Z79.891 Long term (current) use of opiate analgesic

== ENCOUNTER → 2018-11-24 | Outpatient (CLI) | payer OTHER ==
[~2018-11-24] VITALS: Ht 160 cm; Wt 70.1 kg
--- NOTE | ~2018-11-24 | HPC ---
[facility] [place] [address] PAIN MANAGEMENT CONSULTATION Name: IRENE LOGAN Room #: REG [facility]..#: [id number] Admission: 11/24/18 ������������������ Attend Phys: Zana Logan MD Discharge: ������������������ Date of : 49 Report #: [id number] THIS REPORT FOR: //name// CC: ELENA Logan DATE OF SERVICE: 11/24/2018 CHIEF COMPLAINT: "Hand and foot pain." FOLLOWUP HISTORY: The patient is a 73-year-old female who has a history of chronic pain. She continues to have pain, which is problematic involving her hands and feet. She has been told in the past that she has some problems with neuropathic pain. She is at home at this juncture. She continues to be quite active and feels that her medications provided her ability to keep functional. She states that she would like to keep her house clean. The medications are able her to perform activities of daily living with less discomfort. She continues to undergo dialysis Thursday, , and Thursday. She does not have any problems with the gabapentin. She takes it after dialysis. She would like to continue with her medications. She has returned to the pain clinic today for renewal. ALLERGIES: NONSTEROIDAL ANTI-INFLAMMATORY MEDICATIONS, PSEUDOEPHEDRINE, IBUPROFEN AND LYRICA. CURRENT MEDICATIONS: Plavix 75 mg daily, Protonix 40 mg, OxyIR 10 mg b.i.d. p.r.n., gabapentin 900 mg after dialysis, Levoxyl 25 mcg daily, calcium 667 mg, Lipitor 10 mg at bedtime, Ambien 5 mg at bedtime, Sensipar 60 mg daily, Nephrocaps daily and clonazepam 10 mg at bedtime. PAIN CLINIC ASSESSMENT/PQRS: 1. The patient has a history of osteoarthritis in her hands and back. Denies rheumatoid arthritis. 2. Height 5 feet 3 inches, weight 154 pounds, BMI is 27.4. 3. Vital Signs: Blood pressure 150/82, pulse 88, respiratory rate 16, room air saturation 95%. 4. Pain intensity 02/24. 5. Fall history: The patient has not fallen in the last 3 months. 6. Blood thinner. The patient is not on a blood thinning medication. 7. Hypertension. The patient is being treated for hypertension. 8. Opioids. The patient receives her medication from one source, the pain clinic. 9. Risk assessment tool, low for opioid use. 10. Functional assessment . 11. Recreational [place] [address] PAIN MANAGEMENT CONSULTATION Name: IRENE LOGAN [id number] Admission: 11/24/18 ������������������ Attend Phys: Zana Logan MD Discharge: ������������������ Date of : 49 Report #: [id number] 12. Tobacco: The patient is a former smoker. 13. Alcohol: The patient denies frequent alcohol use. PHYSICAL EXAMINATION: GENERAL: The patient is a well-developed, well-nourished black female, appears her stated age. She is using a walker. She was in a wheelchair last time, I saw her. She is accompanied by her daughter. Her grandson is about 7 years old and with her as well. She complains of pain and discomfort in her hands as well as in her feet. Speech is fluent. HEENT: Normocephalic, atraumatic. Extraocular eye muscles intact. The patient has missing a number of teeth in the lower and upper jaw. HEART: Regular rate. ABDOMEN: Nontender. Bowel sounds present. LUNGS: Generally clear to auscultation. EXTREMITIES: Upper extremity muscle strength judged to be 4/5 for the major muscle groups with some complain of pain and discomfort in the hand and the glove distribution. Lower extremity muscle strength 4/5 lower extremity. The patient walks using a walker. She complains of some burning, numbness and tingling sensation in her hands and her feet. IMPRESSION: 1. Neuropathic pain. 2. Bilateral hand and foot pain. 3. Renal disease requiring dialysis 3 times weekly. 4. Complex medical management with axial pain using opioid medication. 5. History of hepatitis C. 6. Chronic renal appetite. 7. Renal failure. 8. Hypertension. RECOMMENDATIONS: We discussed treatment options with the patient. At this juncture, we will continue with her current medications of oxycodone. She feels that this medication is helpful. It is not as helpful which she would like, but finds it with it she is able to engage in activities of daily living such as cleaning her house. We have discussed the risks and benefits of opioid medications with the patient. Possible complications which could include overdosing as well less benefit from the pain medication over time secondary to development of tolerance. She feels that the medications are helpful. Continues to find that the gabapentin medication is beneficial. She had no complications with it. The patient is a very lutheran individual who feels that God continues to watch over her. A script for her OxyContin has been rewritten, oxycodone has been written 10 mg 1 p.o. b.i.d., total for 2 months as well as gabapentin 300 mg. The patient's take 900 mg at the end after dialysis. [address] [address] PAIN MANAGEMENT CONSULTATION Name: IRENE LOGAN [id number] Admission: 11/24/18 ������������������ Attend Phys: Zana Logan MD Discharge: ������������������ Date of : 47 Report #: [id number] She will call us if she has any concerns. We would like to thank you for letting us participate in her care. We hope she continues to improve. ��������������������������������������������� ���������������������������������������� By: ��������������������������������������������� [id number] Zana Logan MD /nt
[2018-11-24 13:35] VITALS: BP 150/82
--- NOTE | 2018-11-24 13:38 | NUR ---
Pain Clinic Assessment: 1. History of Osteoarthritis: History of Rheumatoid Arthritis: 2. Height: 5 ft. 3 in. 160.0 cm. Weight: 154.6 lb. oz. 70.126 kg. Patient's BMI: 27.4 3. Vital Signs: BP: 150/82 Pulse: 88 Resp: 16 Temp: 02 Sat: 95 ECG Mon: 4. Pain Intensity: 10 5. Fall Risk: Dizziness: N Needs help standing or walking: N Fallen in the last 3 months: N Fall risk comments: 6. Patient on Blood Thinner: None 7. History of Hypertension: Y 8. Opioid Therapy greater than 6 weeks: Y Opiate Contract Signed: 9. Risk Assessment Tool Provided: LOW 10. Functional Assessment Tool: 11. Recreational Drug Use: Never Drug Type: Tobacco Use: Former Smoker Tobacco Type: Amount or Packs/day: How Many Years: Alcohol Use: No Frequency: Quant:
== END ==
LOC: PAIN 07:05
DX: M79.641 Pain in right hand (principal); M79.642 Pain in left hand; M79.671 Pain in right foot; M79.672 Pain in left foot; G62.9 Polyneuropathy, unspecified; I12.0 Hypertensive chronic kidney disease with stage 5 chronic kidney disease or end stage renal disease; N18.6 End stage renal disease; Z99.2 Dependence on renal dialysis; Z79.891 Long term (current) use of opiate analgesic; Z86.19 Personal history of other infectious and parasitic diseases

== ENCOUNTER → 2019-02-11 | Outpatient (CLI) | payer OTHER ==
[~2019-02-11] VITALS: Ht 160 cm; Wt 70.4 kg
[2019-02-11 13:44] VITALS: BP 132/97
--- NOTE | 2019-02-11 13:50 | NUR ---
Pain Clinic Assessment: 1. History of Osteoarthritis: Left Lower Extremity Left Upper Extremity Right Lower Extremity Right Upper Extremity History of Rheumatoid Arthritis: Not Applicable 2. Height: 5 ft. 3 in. 160.0 cm. Weight: 155.2 lb. oz. 70.398 kg. Patient's BMI: 27.5 3. Vital Signs: BP: 132/97 Pulse: 84 Resp: 18 Temp: 02 Sat: 98 ECG Mon: 4. Pain Intensity: 10 5. Fall Risk: Dizziness: N Needs help standing or walking: Y Fallen in the last 3 months: N Fall risk comments: 6. Patient on Blood Thinner: None 7. History of Hypertension: Y 8. Opioid Therapy greater than 6 weeks: Y Opiate Contract Signed: 9. Risk Assessment Tool Provided: LOW 10. Functional Assessment Tool: 11. Recreational Drug Use: Never Drug Type: Tobacco Use: Former Smoker Tobacco Type: Amount or Packs/day: How Many Years: Alcohol Use: No Frequency: Quant:
--- NOTE | 2019-02-25 08:26 | HPC ---
[facility] [place] [address] PAIN MANAGEMENT CONSULTATION Name: IRENE LOGAN Room #: REG [facility]..#: [id number] Admission: 02/11/19 Attend Phys: Zana Logan MD Discharge: Date of : 47 Report #: [id number] THIS REPORT FOR: //name// CC: ELENA Logan DATE OF SERVICE: 02/11/2019 CHIEF COMPLAINT: Here for medications having hand, leg and foot pain. HISTORY: The patient is a 73-year-old female who has been followed in the Pain Clinic. As you know, she has a long history. She is on dialysis. She has been on dialysis for about 13 years. She has had some of the repercussions of chronic dialysis. She has problems with pain in her hands as well as in her feet. She also has discomfort down in her legs. She has been using medications to help with the pain. She is somewhat of a fastidious person. She tries to keep her house quite clean. She finds that she is unable to do some of the activities of daily living, she was able to previously. She finds this somewhat distressing. She does undergo dialysis on Tuesdays, and Saturdays. She finds that the gabapentin medication is helpful. She takes it after dialysis. She also finds that the two of these medications help decrease her pain and discomfort. ALLERGIES: NONSTEROIDAL ANTI-INFLAMMATORY MEDICATIONS were not used given the patient's history of renal failure, PSEUDOEPHEDRINE, IBUPROFEN AND LYRICA. CURRENT MEDICATIONS: Plavix 75 mg daily, Protonix 40 mg, OxyIR 10 mg b.i.d., gabapentin 900 mg after dialysis, Levoxyl 25 mg daily, calcium 667 mg, Lipitor 10 mg at bedtime, Ambien 5 mg at bedtime, Sensipar 60 mg daily, Nephrocaps daily, and clonazepam 10 mg at bedtime. PAIN CLINIC ASSESSMENT/PQRS: 1. The patient does have a history of osteoarthritis involving her hands and back. She denies rheumatoid arthritis. 2. Height 5 feet 3 inches, weight 155 pounds, BMI is 27.5. 3. Vital signs: Blood pressure 132/97, pulse 84, respiratory rate 18, room air saturation 98%. 4. Pain intensity, 10/10 involving her hands, legs and feet. 5. Fall history: The patient is fell about 5 days prior to her visit to the Pain Clinic. She did not need/seek medical help. 6. Blood thinner. The patient is not on a blood thinning medication. 7. History of hypertension. The patient is being treated for hypertension. 8. Opioids greater than 6 weeks. 9. Risk assessment tool, low for opioids. 10. Functional assessment tool, . [place] [address] PAIN MANAGEMENT CONSULTATION Name: IRENE LOGAN Room #: REG [facility] Hiren#: [id number] Admission: 02/11/19 Attend Phys: Zana Logan MD Discharge: Date of : 47 Report #: [id number] 11. Recreational drug use. The patient denies. 12. Tobacco: The patient never smoked. 13. Alcohol. The patient denies use of alcoholic beverages. PHYSICAL EXAMINATION: GENERAL: The patient is a well-developed black female, appears her stated age. She is alert and oriented x 3. Her affect is appropriate. Speech is fluent. HEENT: Normocephalic, atraumatic. Extraocular eye muscles intact. Sclerae nonicteric. Mucous membranes are moist. NECK: Without significant JVD. The patient uses a wheelchair. HEENT: The patient has some missing lower and upper teeth. HEART: Regular rate. ABDOMEN: Nontender. LUNGS: Generally clear to auscultation. EXTREMITIES: Upper extremity muscle strength judged to be 4/5 for the major muscle groups in the upper extremity. The patient complains of pain in her hands in a glove distribution. Complains of numbness and tingling in her feet with some burning component of numbness. The patient walks with a walker. IMPRESSION: 1. Neuropathic pain. 2. Bilateral hand and foot pain. 3. Renal disease/renal failure, requiring dialysis 3 times a week. 4. Complex medical management with axial pain using opioid medications. 5. History of hepatitis C. 6. Chronic renal problems. 7. Hypertension. RECOMMENDATIONS: We discussed treatment options with the patient. At this juncture, we will continue with her medications. The patient is aware that opioid medications can be problematic in certain people. She has taken her medication as prescribed. She does not have any problems with them. Keeps them in a guarded area. She feels that they enable her to engage in activities, she would not be able to without their use. She is generally happy with the way that things are going on with her medications. Of course, she would like for them to be more efficacious, but overall things are going reasonably well. She would like to have her medications renewed. A script for her medications of OxyIR 10 mg 1 p.o. b.i.d. has been written. The patient has been given a 2-month supply. She will also continue with Neurontin 300 mg. She will take 3 tablets after dialysis on Thursday, and Thursday. [address] [place] [address] PAIN MANAGEMENT CONSULTATION Name: IRENE LOGAN Room #: REG [facility]..#: [id number] Admission: 02/11/19 Attend Phys: Zana Logan MD Discharge: Date of : 47 Report #: [id number] We would like to thank you for letting us participate in her care. We hope she continues to improve. <ELECTRONICALLY SIGNED> By: Zana Logan MD 02/25/19 0826 [id number] Zana Logan MD /nt
== END ==
LOC: PAIN 06:58
DX: M79.642 Pain in left hand (principal); M79.641 Pain in right hand; B19.20 Unspecified viral hepatitis C without hepatic coma; I10 Essential (primary) hypertension; N19 Unspecified kidney failure; Z88.8 Allergy status to other drugs, medicaments and biological substances; Z99.2 Dependence on renal dialysis; Z79.891 Long term (current) use of opiate analgesic; Z79.899 Other long term (current) drug therapy

== ENCOUNTER → 2019-04-22 | Outpatient (CLI) | payer OTHER ==
[~2019-04-22] VITALS: Ht 160 cm; Wt 67.2 kg
[2019-04-22 09:23] VITALS: BP 159/79
--- NOTE | 2019-04-22 09:33 | NUR ---
Pain Clinic Assessment: 1. History of Osteoarthritis: Left Lower Extremity Left Upper Extremity Right Lower Extremity Right Upper Extremity History of Rheumatoid Arthritis: Not Applicable 2. Height: 5 ft. 3 in. 160.0 cm. Weight: 148.2 lb. oz. 67.223 kg. Patient's BMI: 26.3 3. Vital Signs: BP: 159/79 Pulse: 86 Resp: 18 Temp: 02 Sat: 100 ECG Mon: 4. Pain Intensity: 10 5. Fall Risk: Dizziness: N Needs help standing or walking: Y Fallen in the last 3 months: N Fall risk comments: WALKS WITH WALKER 6. Patient on Blood Thinner: None 7. History of Hypertension: Y 8. Opioid Therapy greater than 6 weeks: Y Opiate Contract Signed: 9. Risk Assessment Tool Provided: LOW 10. Functional Assessment Tool: 11. Recreational Drug Use: Never Drug Type: Tobacco Use: Former Smoker Tobacco Type: Amount or Packs/day: How Many Years: Alcohol Use: No Frequency: Quant:
--- NOTE | 2019-05-17 14:24 | HPC ---
[facility] [place] [address] [place] [address] PAIN MANAGEMENT CONSULTATION Name: IRENE LOGAN Room #: REG [facility]..#: [id number] Admission: 04/22/19 Attend Phys: Zana Logan MD Discharge: Date of : 47 Report #: [id number] THIS REPORT FOR: //name// CC: ELENA Logan DATE OF SERVICE: 04/22/2019 CHIEF COMPLAINT: Here for medications. HISTORY: The patient is a 73-year-old female. She has been followed in the pain clinic. She has had kidney failure. She is undergoing dialysis. She has a long history of pain. She has been on dialysis for about 13 years. She has problems associated with this. Has pain that radiates down into her legs. She feels that her medications at this point are helpful. She has returned today with the hopes of having a renewal of her medication. She dialyzes Tuesdays, , and Saturdays. After dialyzing, she takes her gabapentin medication. She has not had any problem with the medication. She feels that the medication is beneficial. ALLERGIES/PROBLEMS: 1. NONSTEROIDAL ANTI-INFLAMMATORY MEDICATIONS NOT GIVEN THE PATIENT'S RENAL HISTORY. 2. PSEUDOEPHEDRINE, IBUPROFEN, LYRICA. CURRENT MEDICATIONS: Plavix 75 mg daily, Protonix 40 mg, OxyIR 10 mg b.i.d., gabapentin 900 mg after dialysis, Levoxyl 25 mcg daily, calcium 667 mg, Lipitor 10 mg at bedtime, Ambien 5 mg at bedtime, Sensipar 60 mg daily, Nephrocaps daily, clonazepam 10 mg at bedtime. PAIN CLINIC ASSESSMENT AND PQRS: 1. The patient has history of osteoarthritis involving her hands and her back. She denies being treated for rheumatoid arthritis. 2. Height 5 feet 3 inches, weight 148 pounds, BMI is 26.3. 3. Vital signs: Blood pressure was 159/79, heart rate is 86, respiratory rate 16, room air saturation 100%. 4. Pain intensity, 02/24. The patient states that she feels like she is "ready to scream." 5. Fall history. The patient has not fallen. She does walk with a walker. 6. Blood thinner. The patient is not on a blood thinning medication. 7. Opioids. The patient received medication from one source, the pain clinic. 8. Risk assessment for opioid use, low. 9. Functional assessment tool, . 10. Recreational drug [place] [address] PAIN MANAGEMENT CONSULTATION Name: IRENE LOGAN Room #: REG [facility].#: [id number] Admission: 04/22/19 Attend Phys: Zana Logan MD Discharge: Date of : 49 Report #: [id number] 11. Tobacco. The patient is a former tobacco smoker. 12. Alcohol. The patient denies use of alcoholic beverages at this juncture. PHYSICAL EXAMINATION: GENERAL: The patient is a well-developed, well-nourished, black female. Appears her stated age. She is alert and oriented x 3. Her affect is appropriate. Speech is fluent. HEENT: Normocephalic, atraumatic. Extraocular eye muscles intact. Has some dental caries. Some missing lower teeth. NECK: Without adenopathy or JVD. The patient is walking with a walker. HEART: Regular. ABDOMEN: Nontender. LUNGS: Generally clear. MUSCULOSKELETAL: Upper extremity muscle strength judged to be 4/5 for the major muscle groups in the upper extremity. The patient has pain and discomfort in a stocking glove distribution. Complains of numbness and tingling in her hands and feet. Has burning. Walks and ambulates with a walker. IMPRESSION: 1. Neuropathic pain. 2. Bilateral hand and foot pain. 3. Renal disease/renal failure, requiring dialysis 3 times a week, has been on dialysis for about 13 years. 4. Complex medical management, using opioid medications. 5. History of hepatitis C. 6. Chronic renal problems. 7. Hypertension. RECOMMENDATIONS: We discussed treatment options with the patient. At this juncture, we will continue with the patient's usual medication regimen. We have discussed the problems with use of opioids. They can be problematic for some people. The patient does not show any signs of problems or addiction. She takes her medication as prescribed. Keeps her medication in a guarded area. She feels that this is helpful. Enables her to be more active than she would be without it. She is quite fastidious. She would like to clean her own house. Sometimes getting down on her hands and knees. Overall, she feels that things are going reasonably well and would like to continue with her medications. A script for her medications of OxyIR 10 mg 1 p.o. b.i.d. has been written. She has also been given gabapentin 300 mg, takes 3 tablets after dialysis 3 times a week. [address] [address] PAIN MANAGEMENT CONSULTATION Name: IRENE LOGAN Room #: REG [facility].#: [id number] Admission: 04/22/19 Attend Phys: Zana Logan MD Discharge: Date of : 49 Report #: [id number] We would like to thank you for letting us participate in her care. We hope she continues to improve. <ELECTRONICALLY SIGNED> By: Zana Logan MD 05/17/19 1424 0936 0018 Zana Logan MD /ARCADIO
== END ==
LOC: PAIN 06:51
DX: Z76.0 Encounter for issue of repeat prescription (principal); M79.2 Neuralgia and neuritis, unspecified; I12.0 Hypertensive chronic kidney disease with stage 5 chronic kidney disease or end stage renal disease; N18.6 End stage renal disease; Z99.2 Dependence on renal dialysis; Z79.891 Long term (current) use of opiate analgesic; Z79.899 Other long term (current) drug therapy

== ENCOUNTER → 2019-07-27 | Outpatient (CLI) | payer OTHER ==
[~2019-07-27] VITALS: Ht 160 cm; Wt 60.6 kg
[2019-07-27 09:53] VITALS: BP 160/85
--- NOTE | 2019-07-27 10:10 | NUR ---
Pain Clinic Assessment: 1. History of Osteoarthritis: Left Lower Extremity Left Upper Extremity Right Lower Extremity Right Upper Extremity History of Rheumatoid Arthritis: Not Applicable 2. Height: 5 ft. 3 in. 160.0 cm. Weight: 133.6 lb. oz. 60.600 kg. Patient's BMI: 23.7 3. Vital Signs: BP: 160/85 Pulse: 73 Resp: 18 Temp: 02 Sat: 100 ECG Mon: 4. Pain Intensity: 10 5. Fall Risk: Dizziness: Y Needs help standing or walking: Y Fallen in the last 3 months: Y Fall risk comments: WALKS WITH WALKER 6. Patient on Blood Thinner: None 7. History of Hypertension: Y 8. Opioid Therapy greater than 6 weeks: Y Opiate Contract Signed: 04/22/19 9. Risk Assessment Tool Provided: DEBRA 10. Functional Assessment Tool: 11. Recreational Drug Use: Never Drug Type: Tobacco Use: Former Smoker Tobacco Type: Amount or Packs/day: How Many Years: Alcohol Use: No Frequency: Quant:
--- NOTE | 2019-08-02 10:01 | HPC ---
[facility] [place] [address] [place] [address] PAIN MANAGEMENT CONSULTATION Name: IRENE LOGANH Room #: REG [facility].#: [id number] Admission: 07/27/19 Attend Phys: Zana Loagn MD Discharge: Date of : 47 Report #: [id number] THIS REPORT FOR: cc: Slava Melo,Zana Egan MD ~ CC: Slava Logan DATE OF SERVICE: 07/27/2019 CHIEF COMPLAINT: The medicines are helpful. I am sad. My sister . HISTORY: The patient is a 74-year-old female who has been followed in the pain clinic because of chronic pain. As you recall, she has a long history of pain. She has pain that radiates down into her legs. She has diabetes. She is also on dialysis Tuesdays, and Saturdays. She finds that the gabapentin medication continues to be helpful. She also has pain and discomfort, which is elevated. She has not taken her pain medications for a number of days. She rates her pain as a 10/10 at this point. She describes it as constant, shooting, aching, throbbing, sharp pain. There is a pins and needle sensation in her lower extremities. ALLERGIES: The patient has problems with NONSTEROIDAL ANTI-INFLAMMATORY MEDICATIONS, given her renal history, PSEUDOEPHEDRINE, IBUPROFEN, LYRICA. CURRENT MEDICATIONS: Plavix 75 mg, Protonix 40 mg, OxyIR 10 mg b.i.d., gabapentin 900 mg after dialysis, Levoxyl 25 mcg daily, calcium 667 mg, Lipitor 10 mg at bedtime, Ambien 5 mg at bedtime, Sensipar 60 mg daily, Nephrocaps, clonazepam 10 mg at bedtime. PAIN CLINIC ASSESSMENT AND PQRS: 1. The patient has some pain as a result of osteoarthritis involving her hands as well as her back. She is not being treated for rheumatoid arthritis. 2. Height 5 feet 3 inches, weight 133 pounds, BMI is 23.7. 3. Vital Signs: Blood pressure 160/85, pulse 73, respiratory rate 18, room air saturation is 100%. 4. Pain intensity 02/24. 5. Fall history: The patient has not fallen, but is now walking with a walker. 6. Blood thinner. The patient is not on a blood thinning medication. 7. Hypertension. The patient is being treated for hypertension. 8. Opioids greater than 6 weeks. The patient received medication from one source the pain clinic. 9. Risk assessment tool, low for opioid use. 10. Functional assessment tool, . 11. Recreational drug use: The patient denies. [address] [address] PAIN MANAGEMENT CONSULTATION Name: IRENE LOGAN Room #: REG [facility].#: [id number] Admission: 07/27/19 Attend Phys: Zana Logan MD Discharge: Date of : 49 Report #: [id number] 12. Tobacco: The patient is a former smoker. 13. Alcohol. The patient denies use of alcoholic beverages. PHYSICAL EXAMINATION: GENERAL: The patient is a well-developed, well-nourished black female, appears her stated age. She does look somewhat weak. She is alert and oriented x 3. Her affect is appropriate. She is somewhat depressed appearing. Her sister recently . Speech is fluent. HEENT: Normocephalic, atraumatic. Extraocular eye muscles intact. The patient has a number of caries. Some missing teeth in the lower jaw. NECK: Without adenopathy or JVD. The patient is walking with a walker. HEART: Regular rate. ABDOMEN: Nontender. LUNGS: Generally clear. MUSCULOSKELETAL: Upper extremity muscle strength judged to be 4/5 for the major muscle groups in the upper extremity. Lower extremity muscle strength 4/5 for the lower extremity. The patient has a stocking glove distribution with numbness and tingling involving her hands and feet. There is a burning sensation. Ambulates with use of a walker. IMPRESSION: 1. Neuropathic pain. 2. Bilateral hand and foot pain. 3. Renal disease/renal failure requiring dialysis 3 times weekly and has been undergoing this for about the last 13 years. 4. Complex medical regimen using opioids. 5. Hepatitis C history. 6. Chronic renal problems. 7. Hypertension. 8. Depression secondary to loss of her sister who was in hospice. RECOMMENDATIONS: We discussed treatment options with the patient. At this juncture, we will continue with her medications. She feels the medications are helpful. She ran out of medications. She has not taken any for a while she was with her sister who has in hospice. Because of that, she has noted an elevation in her pain. Rates it as 10/10. We will continue with her medications. A script for gabapentin 300 mg 1 p.o. t.i.d. will be used. The patient will also continue with OxyIR 10 mg p.o. b.i.d. We would like to thank you for letting us participate in her care. We hope she continues to improve. Hopefully, she continues to improve in regards to the loss of her sister. <ELECTRONICALLY SIGNED> By: Zana Logan MD 08/02/19 1001 [id number] 1513 MD ALEJA Calvo
== END ==
LOC: PAIN 06:39
DX: M79.2 Neuralgia and neuritis, unspecified (principal); G89.29 Other chronic pain; M79.642 Pain in left hand; M79.641 Pain in right hand; M79.672 Pain in left foot; M79.671 Pain in right foot; I12.0 Hypertensive chronic kidney disease with stage 5 chronic kidney disease or end stage renal disease; N18.6 End stage renal disease; Z88.8 Allergy status to other drugs, medicaments and biological substances; Z68.23 Body mass index [BMI] 23.0-23.9, adult; Z79.899 Other long term (current) drug therapy

== ENCOUNTER → 2019-11-09 | Outpatient (CLI) | payer OTHER ==
[~2019-11-09] VITALS: Ht 160 cm; Wt 64.0 kg
[~2019-11-09] MED LIST changes: +NEURONTIN 300M300 M2 PO
[2019-11-09 13:20] VITALS: BP 147/82
--- NOTE | 2019-11-09 13:37 | NUR ---
Pain Clinic Assessment: 1. History of Osteoarthritis: Left Lower Extremity Left Upper Extremity Right Lower Extremity Right Upper Extremity History of Rheumatoid Arthritis: Not Applicable 2. Height: 5 ft. 3 in. 160.0 cm. Weight: 141.0 lb. oz. 63.957 kg. Patient's BMI: 25.0 3. Vital Signs: BP: 147/82 Pulse: 81 Resp: 16 Temp: 02 Sat: 100 ECG Mon: 4. Pain Intensity: 9 5. Fall Risk: Dizziness: N Needs help standing or walking: Y Fallen in the last 3 months: N Fall risk comments: WALKS WITH WALKER 6. Patient on Blood Thinner: None 7. History of Hypertension: Y 8. Opioid Therapy greater than 6 weeks: Y Opiate Contract Signed: 04/22/19 9. Risk Assessment Tool Provided: DEBRA 10. Functional Assessment Tool: 11. Recreational Drug Use: Never Drug Type: Tobacco Use: Former Smoker Tobacco Type: Amount or Packs/day: How Many Years: Alcohol Use: No Frequency: Quant:
--- NOTE | 2019-11-10 11:04 | HPC ---
[facility] [place] [address] PAIN MANAGEMENT CONSULTATION Name: MARY ELLENIRENE ZENON Room #: REG [facility]..#: [id number] Admission: 11/09/19 Attend Phys: Heaven Guerrero Discharge: Date of : 49 Report #: [id number] THIS REPORT FOR: cc: Slava Melo Matthew DO Hocker, Amanda CNS ~ CC: Alhaji LOGAN MD DATE OF SERVICE: 11/09/2019 CHIEF COMPLAINT: Chronic pain, foot pain. HISTORY OF PRESENT ILLNESS: As you know, this is a 74-year-old female who returns to the pain clinic today. She is on dialysis and continues to have bilateral hand and leg pain as a result of neuropathic issues. She has been unable to get to appointments here at our clinic due to confusion with transportation and her sister has recently as well as the patient had foot surgery on her right foot. It is in a boot today, so her pain is slightly elevated at 9/10 compared to her normal when she is taking her medications. Today, she states her hands and feet are burning, throbbing, sharp, worse with activity and walking. She feels that the medications she takes of oxycodone is beneficial. Today, she is requesting refills of this medication. ALLERGIES: NONSTEROIDAL ANTI-INFLAMMATORIES, PSEUDOEPHEDRINE, IBUPROFEN, AND LYRICA. CURRENT LIST OF MEDICATIONS: OxyIR b.i.d., gabapentin 900 mg after dialysis, levothyroxine, calcium, Lipitor, Sensipar, Nephrocaps, clonazepam. PQRS: 1. She has multiple joint osteoarthritis. Denies any rheumatoid arthritis. 2. Height is 5 feet 3 inches, weight is 141, BMI is 25. 3. Vital signs 147/82, pulse is 81, respirations 16, oxygen sat is 100. 4. Pain score is 9/10. 5. Denies dizziness. Does need help walking, uses a walker. Has not fallen in the last 3 months. The patient is not on any blood thinners, but does take medicine for hypertension. Opioid therapy is greater than 6 weeks; therefore, an opioid signed contract is on the chart. Risk assessment is low. Functional assessment is 2170. 6. Recreational drug use, she denies. She is a former smoker and does not drink alcohol. According to the prescription monitoring system, she has not filled her medicines since 09/14/2019. She is past due to fill these; therefore, she has been out of her medicines. According to the [facility] guidelines, her morphine mEq is [facility] [address] [place] [address] PAIN MANAGEMENT CONSULTATION Name: IRENE LOGAN Room #: REG [facility] Chiquita.#: [id number] Admission: 11/09/19 Attend Phys: Heaven Guerrero Discharge: Date of : 49 Report #: [id number] 30 MME per day. PHYSICAL EXAMINATION: GENERAL: This is a well-developed, well-nourished black female who appears her stated age, slightly forgetful in some questions today, but alert. HEENT: Normocephalic, atraumatic. Extraocular eye muscles are intact. The patient has missing teeth in her lower jaw though she does wear a mask and is removing it quite frequently today. NECK: Without adenopathy or JVD. MUSCULOSKELETAL: Her upper extremity strength judged to be 4/5 as well as her lower extremities. She is deconditioned. Does use a walker. She is a stocking glove distribution of numbness and tingling involving her bilateral hands and feet. She is wearing a boot on her right foot that is as an Cain wrap from recent foot surgery. IMPRESSION: 1. Neuropathic pain. 2. Bilateral hand and foot pain. 3. Renal disease, end-stage renal failure, requiring dialysis. 4. Hepatitis C. 5. Complex medical management utilizing opioids. 6. Depression. 7. Hypertension. PLAN: 1. We discussed treatment options. I encouraged the patient not to run out of her medications, which she does fairly frequently. She had been unable to get here. We will refill her oxycodone 10 IR #60. The patient instructed to fill them today and again in 4 weeks and to try and make a timely appointment and not run out of medications as it does increase her pain significantly. 2. We will refill her gabapentin 900 mg to be used Thursday, and Thursday after dialysis. 3. The patient is seen in collaboration with Dr. Daniel Logan. <ELECTRONICALLY SIGNED> By: Heaven Guerrero 11/10/19 1104 [id number] Heaven Guerrero /anupam
== END ==
LOC: PAIN 10-26 06:48
PROVIDERS: ATTEND Clinical Nurse Specialist Adult Health
DX: M79.672 Pain in left foot (principal); M79.671 Pain in right foot; B18.2 Chronic viral hepatitis C; I12.0 Hypertensive chronic kidney disease with stage 5 chronic kidney disease or end stage renal disease; N18.6 End stage renal disease; F32.9 Major depressive disorder, single episode, unspecified; F11.20 Opioid dependence, uncomplicated; M79.2 Neuralgia and neuritis, unspecified; Z88.8 Allergy status to other drugs, medicaments and biological substances; Z79.899 Other long term (current) drug therapy

== ENCOUNTER → 2020-01-25 | Outpatient (CLI) | payer OTHER ==
[~2020-01-25] VITALS: Ht 160 cm; Wt 62.5 kg
[2020-01-25 08:45] VITALS: BP 148/91
--- NOTE | 2020-01-25 09:08 | NUR ---
Pain Clinic Assessment: 1. History of Osteoarthritis: Left Lower Extremity Left Upper Extremity Right Lower Extremity Right Upper Extremity History of Rheumatoid Arthritis: Not Applicable 2. Height: 5 ft. 3 in. 160.0 cm. Weight: 137.8 lb. oz. 62.506 kg. Patient's BMI: 24.4 3. Vital Signs: BP: 148/91 Pulse: 73 Resp: 16 Temp: 02 Sat: 100 ECG Mon: 4. Pain Intensity: 8 5. Fall Risk: Dizziness: N Needs help standing or walking: Y Fallen in the last 3 months: N Fall risk comments: WALKS WITH WALKER 6. Patient on Blood Thinner: None 7. History of Hypertension: Y 8. Opioid Therapy greater than 6 weeks: Y Opiate Contract Signed: 04/22/19 9. Risk Assessment Tool Provided: DEBRA 10. Functional Assessment Tool: 11. Recreational Drug Use: Never Drug Type: Tobacco Use: Former Smoker Tobacco Type: Amount or Packs/day: How Many Years: Alcohol Use: No Frequency: Quant:
--- NOTE | 2020-01-25 14:49 | HPC ---
[facility] [place] [address] PAIN MANAGEMENT CONSULTATION Name: MARY ELLENIRENE ZENON Room #: REG [facility].#: [id number] Admission: 01/25/20 Attend Phys: Heaven Guerrero Discharge: Date of : 49 Report #: [id number] THIS REPORT FOR: cc: Slava Melo Matthew DO Hocker,Heaven JUAREZ ~ CC: Alhaji Logan MD DATE OF SERVICE: 01/25/2020 CHIEF COMPLAINT: Chronic pain, foot pain, hand pain and neuropathic pain. HISTORY OF PRESENT ILLNESS: As you know, this is a 74-year-old female who returns to the pain clinic today for refill of her medications. She is a dialysis patient, has a long history of pain. She has pain associated from her dialysis and kidney failure. Pain radiates into her bilateral legs as well as her hands. She suffers with neuropathy, it is very painful at times. The patient feels that her medications of oxycodone and gabapentin are beneficial in reducing some of her pain. Today, she is reporting her pain score an 8/10. She has been off all of her medications for a few days since she did not schedule a timely appointment. The patient states that she has noticed a significant increase in her pain since she has not been on her medications. The patient does report that her pain is usually worse when she is active and walking. She recently moved into a new apartment and has been busy in packing and did have increased pain during that time. She feels the Icy Hot is also beneficial in reducing some of her pain on her hands. ALLERGIES: NONSTEROIDAL ANTI-INFLAMMATORIES, PSEUDOEPHEDRINE, IBUPROFEN and LYRICA. PQRS: 1. She has osteoarthritis in her upper and lower extremities. She denies any rheumatoid arthritis. 2. Height is 5 feet 3 inches, weight is 137, BMI is 24. 3. Vital signs 148/91, pulse is 73, respirations 16, oxygen sat is 100. 4. Pain score is 8/10. 5. Denies dizziness. Does use a walker at all times. Has not fallen in the last 3 months. 6. The patient is not on a blood thinner, but does have a history of hypertension. 7. Opioid therapy is greater than 6 weeks; therefore, an opioid signed contract is on the chart. Risk assessment tool is low. Functional assessment is 21/70. 8. Recreational drug use, she denies. A former smoker and does not drink alcohol. According to the prescription monitoring system, the patient is past due to fill [address] [address] PAIN MANAGEMENT CONSULTATION Name: IRENE LOGAN Room #: REG [facility] Chiquita.#: [id number] Admission: 01/25/20 Attend Phys: Heaven Guerrero Discharge: Date of : 49 Report #: [id number] her opioid medications. She has been out of her medications for some time. We encouraged her to make timely appointments filling her second prescription and calling for an appointment on the same day. If she is taking all of her medications in a timely fashion, her morphine mEq is 30 MME per day. PHYSICAL EXAMINATION: GENERAL: This is alert and orientated, well-developed, well-nourished white female who appears her stated age. Her speech is fluent. HEENT: Normocephalic, atraumatic. Extraocular eye muscles are intact. She has several teeth missing, though she is wearing her mask today. She just pulled it down to show me her mouth. NECK: Without adenopathy or JVD. MUSCULOSKELETAL: Upper extremity strength judged to be 4/5. Lower muscle strength is slightly diminished at 4/5. She does use a walker at all times. The patient has a stocking glove distribution of numbness and tingling in her bilateral hands and feet. She has an AV shunt in her right upper arm. IMPRESSION: 1. Neuropathic pain. 2. Bilateral hand and foot pain. 3. Renal disease and renal failure, requiring dialysis. 4. History of hepatitis C. 5. Hypertension. 6. Complex medical management utilizing scheduled opioid medications. We reviewed the fact that opiate medications are being used to provide analgesia adequate to support activities of daily living, not attempting to achieve a specific pain score on the 0-10 Visual Analog Scale. The current opiate medications are providing sufficient analgesia to allow the patient to participate in activities of daily living. The patient is not exhibiting any aberrant behavior suggestive of drug diversion. The patient is not having any adverse reactions to medications. The patient is not suffering from daytime somnolence or mental acuity changes. The patient is managing opiate-induced constipation with appropriate psyf-rbp-qtpbsty agents and dietary considerations. The patient was counseled on concern for caution with operating a motor vehicle while using opiate medications. PLAN: 1. We discussed treatment options with the patient today. The patient has been out of her medications for several days. I encouraged her to try to prevent this in the future where her pain does increase quite significantly, to call for an appointment after she fills her second prescription, making her appointment in a month's time; therefore, she should not run out of medications. The patient states she will try to do that in the future. 2. We did discuss her ongoing arthritic hands. I believe that she could trial the Voltaren gel, which is now poba-syq-jfuyvbb. She is allergic to ORAL [facility] [place] [address] PAIN MANAGEMENT CONSULTATION Name: MARY ELLENIRENE ZENON Room #: REG [facility] M.R.#: [id number] Admission: 01/25/20 Attend Phys: Heaven Guerrero Discharge: Date of : 49 Report #: [id number] IBUPROFEN, but she believes that she could take something that is not systemic. I encouraged her to talk to the pharmacist about this. 3. Scripts were written for oxycodone 10 mg IR #60 for today and 4-week supply as well as gabapentin 300 mg tablets, patient takes 3 tablets Thursday, and Thursday after dialysis, quantity 36 with 5 additional refills will be sent by Dr. Logan for these medications to the pharmacy. 4. 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 The patient is going to try to take Nervine, which is an pkbo-qbu-pdorzqr medication that helps control some of her anxiety when she feels anxious since they are no longer writing for this medication. 5. The patient will follow up in 2 months. The patient is seen today in collaboration with Dr. Daniel Logan. <ELECTRONICALLY SIGNED> By: Heaven Guerrero 01/25/20 1449 [id number] [id number] Heaven Guerrero /anupam
== END ==
LOC: PAIN 06:48
PROVIDERS: ATTEND Clinical Nurse Specialist Adult Health
DX: M79.2 Neuralgia and neuritis, unspecified (principal); M79.671 Pain in right foot; M79.672 Pain in left foot; M79.642 Pain in left hand; M79.641 Pain in right hand; G89.29 Other chronic pain; N17.2 Acute kidney failure with medullary necrosis; I10 Essential (primary) hypertension; F11.20 Opioid dependence, uncomplicated; Z88.8 Allergy status to other drugs, medicaments and biological substances; Z86.19 Personal history of other infectious and parasitic diseases; Z79.899 Other long term (current) drug therapy

== ENCOUNTER → 2020-03-23 | Outpatient (CLI) | payer OTHER ==
[~2020-03-23] VITALS: Ht 160 cm; Wt 60.8 kg
[~2020-03-23] MED LIST changes: +ASPIRIN EC81 M1 PO; +LIPITOR40 MG PO; +PLAVIX 75 MG TA75 MG PO
[2020-03-23 08:55] VITALS: BP 131/64
--- NOTE | 2020-03-23 09:33 | NUR ---
Pain Clinic Assessment: 1. History of Osteoarthritis: Left Lower Extremity Left Upper Extremity Right Lower Extremity Right Upper Extremity History of Rheumatoid Arthritis: Not Applicable 2. Height: 5 ft. 3 in. 160.0 cm. Weight: 134.0 lb. oz. 60.782 kg. Patient's BMI: 23.7 3. Vital Signs: BP: 131/64 Pulse: 76 Resp: 16 Temp: 02 Sat: 94 ECG Mon: 4. Pain Intensity: 9 5. Fall Risk: Dizziness: N Needs help standing or walking: N Fallen in the last 3 months: N Fall risk comments: WALKS WITH WALKER 6. Patient on Blood Thinner: None 7. History of Hypertension: Y 8. Opioid Therapy greater than 6 weeks: Y Opiate Contract Signed: 04/22/19 9. Risk Assessment Tool Provided: DEBRA 10. Functional Assessment Tool: 11. Recreational Drug Use: Never Drug Type: Tobacco Use: Former Smoker Tobacco Type: Amount or Packs/day: How Many Years: Alcohol Use: No Frequency: Quant:
--- NOTE | 2020-04-19 14:52 | HPC ---
[facility] [address] [place] [address] PAIN MANAGEMENT CONSULTATION Name: IRENE LOGAN Room #: REG [facility].#: [id number] Admission: 03/23/20 Attend Phys: Zana Logan MD Discharge: Date of : 49 Report #: [id number] THIS REPORT FOR: cc: Osmayn Melo Matthew DO Brown, N. Wayne MD ~ CC: OSMANY Luna DATE OF SERVICE: 03/23/2020 CHIEF COMPLAINT: Hand pain, back pain. HISTORY: The patient is a 74-year-old female who has been followed in the pain clinic because of chronic pain. She has had pain involving the left and right extremities. She has a history of dialysis. She has diabetes. Has some diabetic neuropathy type discomfort, pin and needle sensation in her lower extremities. She has returned today for renewal of her medications. She has dialysis on Tuesdays, and Saturdays. Notes that her pain becomes more problematic after dialysis. ALLERGIES: The patient is not receiving nonsteroidal anti-inflammatory medications, PSEUDOEPHEDRINE, IBUPROFEN, LYRICA. CURRENT MEDICATIONS: Plavix 75 mg, Protonix 40 mg, OxyIR 10 mg b.i.d., gabapentin 900 mg after dialysis, levothyroxine 25 mcg daily, calcium 667.5 mg, Lipitor 10 mg at bedtime, Ambien 5 mg at bedtime, Sensipar 60 mg daily, Nephrocaps, clonazepam 10 mg b.i.d. PAIN CLINIC ASSESSMENT AND PQRS: 1. The patient has some pain as a result of osteoarthritis involving her hands and back. She is not being treated for rheumatoid arthritis. 2. Height 5 feet 3 inches, weight 134 pounds, BMI is 23.7. 3. Vital Signs: Blood pressure 131/64, pulse 76, respiratory rate 16, room air saturation 97%, temperature to be recorded. 4. Pain intensity 01/25. 5. Fall risk. The patient has not fallen in the last 3 months. Does walk with a walker. 6. Blood thinner. The patient is on Plavix. 7. Hypertension. The patient is being treated for hypertension. 8. Opioids greater than 6 weeks. The patient receives medications from her primary. 9. Risk assessment tool, low for opioid use is low. Her functional assessment is 2170. 10. Recreational drug use: The patient denied. [address] [address] PAIN MANAGEMENT CONSULTATION Name: IRENE LOGAN Room #: REG [facility]#: [id number] Admission: 03/23/20 Attend Phys: Zana Logan MD Discharge: Date of : 49 Report #: [id number] 11. Tobacco: The patient is a former smoker. 12. Alcohol: The patient denies use of alcoholic beverages at this juncture. PHYSICAL EXAMINATION: GENERAL: The patient is a well-developed, well-nourished black female, appears her stated age. She is alert and oriented x 3. Her affect is appropriate. Speech is fluent. HEENT: Normocephalic, atraumatic. Extraocular eye muscles intact. The patient is wearing a facial covering. NECK: Without adenopathy or JVD. The patient walks with a walker. HEART: Regular. ABDOMEN: Nontender. LUNGS: Generally clear. MUSCULOSKELETAL: Upper extremity muscle strength judged to be 4+/5 for the major muscle groups in the upper extremity. Lower extremity 4+/5 for the major muscle groups in the upper extremity. The patient has a dark stocking glove for distribution of numbness and tingling involving her hands and feet. There is a burning sensation. IMPRESSION: 1. Neuropathic pain. 2. Bilateral hand and foot pain. 3. Renal disease/renal failure, requiring dialysis 3 times weekly and has been undergoing this for the last 13 years. 4. Complex medical regimen using opioids. 5. Coronary artery disease, status post 4 stent placement and receiving Plavix. 6. Hepatitis C history. 7. Hypertension. 8. Depression secondary to loss of sister. RECOMMENDATIONS: We discussed treatment options with the patient. We will continue with her medications. A script for her medications has been provided. The patient will continue with gabapentin 300 mg 1 p.o. t.i.d. She will also continue with OxyIR 10 mg one p.o. b.i.d. She is aware that opioid medications can become less effective as time goes on. She is not having any problems with thinking and her sensorium is clear with use of her current medical regimen. We would like to thank you for letting us participate in her care. We hope she continues to improve. <ELECTRONICALLY SIGNED> By: Zana Logan MD 04/19/20 1452 [id number] [id number] Zana Logan MD /[facility]
== END ==
LOC: PAIN 06:53
PROVIDERS: ATTEND Anesthesiology Pain Medicine
DX: M54.9 Dorsalgia, unspecified (principal); M79.2 Neuralgia and neuritis, unspecified; M79.642 Pain in left hand; F11.20 Opioid dependence, uncomplicated; I25.10 Atherosclerotic heart disease of native coronary artery without angina pectoris; I10 Essential (primary) hypertension; F32.9 Major depressive disorder, single episode, unspecified; Z99.2 Dependence on renal dialysis; Z88.8 Allergy status to other drugs, medicaments and biological substances; Z79.899 Other long term (current) drug therapy

== ENCOUNTER → 2020-05-23 | Outpatient (CLI) | payer OTHER ==
[~2020-05-23] VITALS: Ht 160 cm; Wt 64.2 kg
[2020-05-23 14:07] VITALS: BP 157/98
--- NOTE | 2020-05-23 14:17 | NUR ---
Pain Clinic Assessment: 1. History of Osteoarthritis: Left Lower Extremity Left Upper Extremity Right Lower Extremity Right Upper Extremity History of Rheumatoid Arthritis: Not Applicable 2. Height: 5 ft. 3 in. 160.0 cm. Weight: 141.6 lb. oz. 64.229 kg. Patient's BMI: 25.1 3. Vital Signs: BP: 157/98 Pulse: 74 Resp: 18 Temp: 02 Sat: 100 ECG Mon: 4. Pain Intensity: 8 5. Fall Risk: Dizziness: N Needs help standing or walking: N Fallen in the last 3 months: N Fall risk comments: WALKS WITH WALKER 6. Patient on Blood Thinner: PLAVIX 7. History of Hypertension: Y 8. Opioid Therapy greater than 6 weeks: Y Opiate Contract Signed: 04/22/19 9. Risk Assessment Tool Provided: DEBRA 10. Functional Assessment Tool: 11. Recreational Drug Use: Never Drug Type: Tobacco Use: Former Smoker Tobacco Type: Amount or Packs/day: How Many Years: Alcohol Use: No Frequency: Quant:
== END ==
LOC: PAIN 06:55
PROVIDERS: ATTEND Anesthesiology Pain Medicine
DX: G62.9 Polyneuropathy, unspecified (principal); N17.9 Acute kidney failure, unspecified; F32.9 Major depressive disorder, single episode, unspecified; I10 Essential (primary) hypertension; I25.10 Atherosclerotic heart disease of native coronary artery without angina pectoris; Z86.19 Personal history of other infectious and parasitic diseases; Z88.8 Allergy status to other drugs, medicaments and biological substances; Z79.899 Other long term (current) drug therapy

== ENCOUNTER → 2020-07-20 | Outpatient (CLI) | payer OTHER ==
[~2020-07-20] VITALS: Ht 160 cm; Wt 63.7 kg
[2020-07-20 08:15] VITALS: BP 156/89
--- NOTE | 2020-07-20 08:28 | NUR ---
Pain Clinic Assessment: 1. History of Osteoarthritis: Left Lower Extremity Left Upper Extremity Right Lower Extremity Right Upper Extremity History of Rheumatoid Arthritis: Not Applicable 2. Height: 5 ft. 3 in. 160.0 cm. Weight: 140.4 lb. oz. 63.685 kg. Patient's BMI: 24.9 3. Vital Signs: BP: 156/89 Pulse: 77 Resp: 18 Temp: 02 Sat: 100 ECG Mon: 4. Pain Intensity: 9 5. Fall Risk: Dizziness: N Needs help standing or walking: Y Fallen in the last 3 months: N Fall risk comments: WALKS WITH WALKER 6. Patient on Blood Thinner: PLAVIX 7. History of Hypertension: Y 8. Opioid Therapy greater than 6 weeks: Y Opiate Contract Signed: 04/22/19 9. Risk Assessment Tool Provided: DEBRA 10. Functional Assessment Tool: 11. Recreational Drug Use: Never Drug Type: Tobacco Use: Former Smoker Tobacco Type: Amount or Packs/day: How Many Years: Alcohol Use: No Frequency: Quant:
== END ==
LOC: PAIN 06:43
PROVIDERS: ATTEND Anesthesiology Pain Medicine
DX: M79.2 Neuralgia and neuritis, unspecified (principal); I12.0 Hypertensive chronic kidney disease with stage 5 chronic kidney disease or end stage renal disease; N18.6 End stage renal disease; F32.9 Major depressive disorder, single episode, unspecified; Z99.2 Dependence on renal dialysis; Z86.19 Personal history of other infectious and parasitic diseases; Z79.891 Long term (current) use of opiate analgesic

== ENCOUNTER → 2020-09-14 | Outpatient (CLI) | payer OTHER ==
[~2020-09-14] VITALS: Ht 7.6 cm; Wt 62.0 kg
[~2020-09-14] MED LIST changes: +ASPIRIN EC325 MG PO
[2020-09-14 09:14] VITALS: BP 151/90
--- NOTE | 2020-09-14 09:24 | NUR ---
Pain Clinic Assessment: 1. History of Osteoarthritis: Left Lower Extremity Left Upper Extremity Right Lower Extremity Right Upper Extremity History of Rheumatoid Arthritis: Not Applicable 2. Height: ft. 3 in. 7.6 cm. Weight: 136.6 lb. oz. 61.961 kg. Patient's BMI: 23252.3 3. Vital Signs: BP: 151/90 Pulse: 91 Resp: 16 Temp: 02 Sat: 100 ECG Mon: 4. Pain Intensity: 9 5. Fall Risk: Dizziness: Y Needs help standing or walking: N Fallen in the last 3 months: N Fall risk comments: WALKS WITH WALKER 6. Patient on Blood Thinner: PLAVIX 7. History of Hypertension: Y 8. Opioid Therapy greater than 6 weeks: Y Opiate Contract Signed: 04/22/19 9. Risk Assessment Tool Provided: LOW 10. Functional Assessment Tool: 11. Recreational Drug Use: Never Drug Type: Tobacco Use: Former Smoker Tobacco Type: Amount or Packs/day: How Many Years: Alcohol Use: No Frequency: Quant:
== END ==
LOC: PAIN 08:04
PROVIDERS: ATTEND Anesthesiology Pain Medicine
DX: Z76.0 Encounter for issue of repeat prescription (principal); M79.641 Pain in right hand; M79.642 Pain in left hand; Z98.61 Coronary angioplasty status; Z99.2 Dependence on renal dialysis; M19.90 Unspecified osteoarthritis, unspecified site; Z87.891 Personal history of nicotine dependence; Z79.899 Other long term (current) drug therapy

== ENCOUNTER → 2020-10-31 | Outpatient (CLI) | payer OTHER ==
[~2020-10-31] VITALS: Ht 157.5 cm; Wt 64.6 kg
[~2020-10-31] MED LIST changes: +MEDROLDOSEPACK PO
[2020-10-31 12:58] VITALS: BP 149/74
--- NOTE | 2020-10-31 13:23 | NUR ---
Pain Clinic Assessment: 1. History of Osteoarthritis: Left Lower Extremity Left Upper Extremity Right Lower Extremity Right Upper Extremity History of Rheumatoid Arthritis: Not Applicable 2. Height: 5 ft. 2 in. 157.5 cm. Weight: 142.4 lb. oz. 64.592 kg. Patient's BMI: 26.0 3. Vital Signs: BP: 149/74 Pulse: 78 Resp: 16 Temp: 02 Sat: 100 ECG Mon: 4. Pain Intensity: 9 5. Fall Risk: Dizziness: N Needs help standing or walking: Y Fallen in the last 3 months: N Fall risk comments: WALKS WITH WALKER 6. Patient on Blood Thinner: PLAVIX 7. History of Hypertension: Y 8. Opioid Therapy greater than 6 weeks: Y Opiate Contract Signed: 04/22/19 9. Risk Assessment Tool Provided: DEBRA 10. Functional Assessment Tool: 11. Recreational Drug Use: Never Drug Type: Tobacco Use: Former Smoker Tobacco Type: Amount or Packs/day: How Many Years: Alcohol Use: No Frequency: Quant:
== END ==
LOC: PAIN 10:41
PROVIDERS: ATTEND Anesthesiology Pain Medicine
DX: G62.9 Polyneuropathy, unspecified (principal); M79.671 Pain in right foot; M79.672 Pain in left foot; M79.641 Pain in right hand; M79.642 Pain in left hand; I12.0 Hypertensive chronic kidney disease with stage 5 chronic kidney disease or end stage renal disease; N18.6 End stage renal disease; Z99.2 Dependence on renal dialysis; Z87.891 Personal history of nicotine dependence; Z79.899 Other long term (current) drug therapy; Z79.82 Long term (current) use of aspirin

== ENCOUNTER → 2021-02-08 | Outpatient (CLI) | payer OTHER ==
[~2021-02-08] VITALS: Ht 157.5 cm; Wt 57.6 kg
[2021-02-08 10:09] VITALS: BP 138/71
--- NOTE | 2021-02-08 10:13 | NUR ---
Pain Clinic Assessment: 1. History of Osteoarthritis: Left Lower Extremity Left Upper Extremity Right Lower Extremity Right Upper Extremity History of Rheumatoid Arthritis: Not Applicable 2. Height: 5 ft. 2 in. 157.5 cm. Weight: 127.0 lb. oz. 57.607 kg. Patient's BMI: 23.2 3. Vital Signs: BP: 138/71 Pulse: 75 Resp: 16 Temp: 02 Sat: 100 ECG Mon: 4. Pain Intensity: 8 5. Fall Risk: Dizziness: N Needs help standing or walking: N Fallen in the last 3 months: N Fall risk comments: WALKS WITH WALKER 6. Patient on Blood Thinner: PLAVIX 7. History of Hypertension: Y 8. Opioid Therapy greater than 6 weeks: Y Opiate Contract Signed: 04/22/19 9. Risk Assessment Tool Provided: LOW 10. Functional Assessment Tool: \ 11. Recreational Drug Use: Never Drug Type: Tobacco Use: Former Smoker Tobacco Type: Amount or Packs/day: How Many Years: Alcohol Use: No Frequency: Quant:
== END | disposition home or self-care (01) ==
LOC: PAIN 01-11 08:02
PROVIDERS: ATTEND Anesthesiology Pain Medicine
DX: M79.652 Pain in left thigh (principal); M79.672 Pain in left foot; M79.671 Pain in right foot; M79.642 Pain in left hand; M79.641 Pain in right hand; M79.605 Pain in left leg; M79.604 Pain in right leg; G89.29 Other chronic pain; I12.0 Hypertensive chronic kidney disease with stage 5 chronic kidney disease or end stage renal disease; N18.6 End stage renal disease; I25.10 Atherosclerotic heart disease of native coronary artery without angina pectoris; F32.9 Major depressive disorder, single episode, unspecified; Z98.890 Other specified postprocedural states; Z79.899 Other long term (current) drug therapy; Z87.891 Personal history of nicotine dependence

== ENCOUNTER → 2021-03-13 | Outpatient (CLI) | payer OTHER ==
[~2021-03-13] VITALS: Ht 157.5 cm; Wt 66.9 kg
[2021-03-13 09:16] VITALS: BP 158/89
--- NOTE | 2021-03-13 09:33 | NUR ---
Pain Clinic Assessment: 1. History of Osteoarthritis: Left Lower Extremity Left Upper Extremity Right Lower Extremity Right Upper Extremity History of Rheumatoid Arthritis: Not Applicable 2. Height: 5 ft. 2 in. 157.5 cm. Weight: 147.4 lb. oz. 66.860 kg. Patient's BMI: 27.0 3. Vital Signs: BP: 158/89 Pulse: 90 Resp: 18 Temp: 02 Sat: 100 ECG Mon: 4. Pain Intensity: 8 5. Fall Risk: Dizziness: N Needs help standing or walking: Y Fallen in the last 3 months: N Fall risk comments: WALKS WITH WALKER 6. Patient on Blood Thinner: PLAVIX 7. History of Hypertension: Y 8. Opioid Therapy greater than 6 weeks: Y Opiate Contract Signed: 04/22/19 9. Risk Assessment Tool Provided: LOW-0 10. Functional Assessment Tool: 11. Recreational Drug Use: Never Drug Type: Tobacco Use: Former Smoker Tobacco Type: Amount or Packs/day: How Many Years: Alcohol Use: No Frequency: Quant:
== END ==
LOC: PAIN 08:07
PROVIDERS: ATTEND Anesthesiology Pain Medicine
DX: M79.652 Pain in left thigh (principal); M79.661 Pain in right lower leg; Z79.82 Long term (current) use of aspirin; Z88.8 Allergy status to other drugs, medicaments and biological substances; Z88.5 Allergy status to narcotic agent; Z79.899 Other long term (current) drug therapy

== ENCOUNTER → 2021-05-03 | Outpatient (CLI) | payer OTHER ==
[2021-05-03 11:28] VITALS: BP 148/94
--- NOTE | 2021-05-03 11:36 | NUR ---
Pain Clinic Assessment: 1. History of Osteoarthritis: Left Lower Extremity Left Upper Extremity Right Lower Extremity Right Upper Extremity History of Rheumatoid Arthritis: Not Applicable 2. Height: ft. in. cm. Weight: 138.0 lb. oz. 62.596 kg. Patient's BMI: 3. Vital Signs: BP: 148/94 Pulse: 73 Resp: 16 Temp: 02 Sat: 100 ECG Mon: 4. Pain Intensity: 9 5. Fall Risk: Dizziness: N Needs help standing or walking: N Fallen in the last 3 months: N Fall risk comments: WALKS WITH WALKER 6. Patient on Blood Thinner: PLAVIX 7. History of Hypertension: Y 8. Opioid Therapy greater than 6 weeks: Y Opiate Contract Signed: 04/22/19 9. Risk Assessment Tool Provided: LOW-0 10. Functional Assessment Tool: 11. Recreational Drug Use: Never Drug Type: Tobacco Use: Former Smoker Tobacco Type: Amount or Packs/day: How Many Years: Alcohol Use: No Frequency: Quant:
== END ==
LOC: PAIN 07:07
PROVIDERS: ATTEND Clinical Nurse Specialist Adult Health
DX: M54.16 Radiculopathy, lumbar region (principal); M25.541 Pain in joints of right hand; M25.542 Pain in joints of left hand; I25.10 Atherosclerotic heart disease of native coronary artery without angina pectoris; G62.9 Polyneuropathy, unspecified; N19 Unspecified kidney failure; Z99.2 Dependence on renal dialysis; Z87.891 Personal history of nicotine dependence; Z88.8 Allergy status to other drugs, medicaments and biological substances; Z79.82 Long term (current) use of aspirin; Z79.899 Other long term (current) drug therapy

== ENCOUNTER → 2021-05-08 | Outpatient (CLI) | payer OTHER ==
[~2021-05-08] VITALS: Ht 157.5 cm; Wt 62.6 kg
[2021-05-08 12:05] VITALS: BP 106/56
--- NOTE | 2021-05-08 12:07 | NUR ---
Pain Clinic Assessment: 1. History of Osteoarthritis: Left Lower Extremity Left Upper Extremity Right Lower Extremity Right Upper Extremity History of Rheumatoid Arthritis: Not Applicable 2. Height: 5 ft. 2 in. 157.5 cm. Weight: 138.0 lb. oz. 62.596 kg. Patient's BMI: 25.2 3. Vital Signs: BP: 106/56 Pulse: 98 Resp: 16 Temp: 02 Sat: 98 ECG Mon: 4. Pain Intensity: 9 5. Fall Risk: Dizziness: N Needs help standing or walking: N Fallen in the last 3 months: N Fall risk comments: WALKS WITH WALKER 6. Patient on Blood Thinner: PLAVIX 7. History of Hypertension: Y 8. Opioid Therapy greater than 6 weeks: Y Opiate Contract Signed: 04/22/19 9. Risk Assessment Tool Provided: LOW-0 10. Functional Assessment Tool: 11. Recreational Drug Use: Never Drug Type: Tobacco Use: Former Smoker Tobacco Type: Amount or Packs/day: How Many Years: Alcohol Use: No Frequency: Quant:
== END | disposition home or self-care (01) ==
LOC: PAIN 08:28
PROVIDERS: ATTEND Anesthesiology Pain Medicine
DX: M54.16 Radiculopathy, lumbar region (principal); G89.29 Other chronic pain; M19.90 Unspecified osteoarthritis, unspecified site; Z98.890 Other specified postprocedural states; Z79.899 Other long term (current) drug therapy; Z88.8 Allergy status to other drugs, medicaments and biological substances

== ENCOUNTER → 2021-07-05 | Outpatient (CLI) | payer OTHER ==
[~2021-07-05] VITALS: Ht 157.5 cm; Wt 66.0 kg
[2021-07-05 08:44] VITALS: BP 149/82
--- NOTE | 2021-07-05 08:51 | NUR ---
Pain Clinic Assessment: 1. History of Osteoarthritis: Left Lower Extremity Left Upper Extremity Right Lower Extremity Right Upper Extremity History of Rheumatoid Arthritis: Not Applicable 2. Height: 5 ft. 2 in. 157.5 cm. Weight: 145.4 lb. oz. 65.953 kg. Patient's BMI: 26.6 3. Vital Signs: BP: 149/82 Pulse: 71 Resp: 16 Temp: 02 Sat: 100 ECG Mon: 4. Pain Intensity: 8 5. Fall Risk: Dizziness: N Needs help standing or walking: Y Fallen in the last 3 months: N Fall risk comments: WALKS WITH WALKER 6. Patient on Blood Thinner: PLAVIX 7. History of Hypertension: Y 8. Opioid Therapy greater than 6 weeks: Y Opiate Contract Signed: 04/22/19 9. Risk Assessment Tool Provided: LOW-0 10. Functional Assessment Tool: 11. Recreational Drug Use: Never Drug Type: Tobacco Use: Former Smoker Tobacco Type: Amount or Packs/day: How Many Years: Alcohol Use: No Frequency: Quant:
== END ==
LOC: PAIN 08:09
PROVIDERS: ATTEND Anesthesiology Pain Medicine
DX: M19.042 Primary osteoarthritis, left hand (principal); M19.041 Primary osteoarthritis, right hand; M19.072 Primary osteoarthritis, left ankle and foot; M19.071 Primary osteoarthritis, right ankle and foot